=== PATIENT | female | born 1955 | race Caucasian/White ===

== ENCOUNTER 2018-12-05 17:49 | Inpatient (IN) | payer MEDICARE, MEDICAID ==
[2018-12-05 18:11] LABS: #Basophils 0.1 thou/uL (0.0-0.2); #Lymphocytes 1.3 thou/uL (1.20-3.40); #Monocytes 0.8 thou/uL (0.11-0.59); #Neutrophils 15.9 thou/uL (1.40-6.50); %Basophils 0.4 % (0.0-1.0); %Eosinophils 0.2 % (0.0-10.0); %Lymphocytes 6.9 % (21.0-51.0); %Monocytes 4.6 % (0.0-10.0); Hemoglobin 15.1 g/dL (12.0-16.0); Mean Corpuscular HGB CONC 33.3 g/dL (32.0-36.0); Mean Corpuscular Hemoglobin 31.1 pg (27.0-31.0); Mean Corpuscular Volume 93.3 fL (78.0-98.0); Mean Platelet Volume 6.4 fL (7.4-10.4); Platelet Count 353 thou/uL (130-400); RBC Distribution Width 12.7 % (11.5-14.5); Red Blood Cell (RBC) Count 4.85 mill/uL (4.20-5.40); White Blood Cell (WBC) Count 18.1 thou/uL (4.8-10.8)
[2018-12-05 18:14] LABS: Actual Bicarbonate (HCO3a) 21.2 mEq/L (22-28); Analyzer IN Cardio ER; CO2 Tension 32.3 mmHg (35.0-45.0); Calcium, Ionized 1.06 mmol/L (1.12-1.30); Carboxyhemoglobin (COHb) 2.8 gm% (0.0-3.0); Hemoglobin (Hb) 15.1 g/dL (12.0-16.0); O2 Tension (PaO2) 64.5 mmHg (> 80.0); Potassium - ABG Lab 3.92 mmol/L (3.70-5.30); pH, Arterial 7.44 (7.35-7.45)
[2018-12-05 18:19] LABS: Puncture Site RRA
[2018-12-05 18:20] LABS: ALV-art Gradient 109.025 (0-20)
[2018-12-05] MEDS ORDERED: Dexamethasone 10 MG/ML VIAL ONE (18:21)
--- NOTE | 2018-12-05 18:32 | RAD ---
CHEST ONE VIEW: 12/05/18 INDICATION: History of cough. COMPARISON: None. FINDINGS: The lungs are hyperinflated. There is patchy interstitial and air space opacity seen within the regio n of the lingula suspicious for pneumonia. Two view chest radiograph is recommended. There is a calci fied granuloma in the right upper lobe. There is mild cardiomegaly. No acute osseous abnormality is n oted. IMPRESSION: 1. Patchy opacity within the region of the lingula suspicious for pneumonia. Recommend two view chest radiograph. 2. COPD change. 3. Findings of prior granulomatous disease. POS: [facility]
[2018-12-05 18:33] LABS: ALT (SGPT) 9 U/L (8-55); AST (SGOT) 20 U/L (5-34); Albumin 3.7 g/dL (3.4-4.8); Alkaline Phosphatase 113 U/L (40-150); Anion Gap 13 mmol/L (10-20); BUN (Urea Nitrogen) Less than 4 mg/dL (9.8-20.1); Bilirubin, Total 0.7 mg/dL (0.2-1.2); CK (CPK) 72 U/L (29-168); Calc. Creatinine Clearance 0 mL/min (70-130); Calcium 8.4 mg/dL (7.8-10.44); Carbon Dioxide 23 mmol/L (23-31); Chloride 98 mmol/L (98-107); Estimated GFR-MDRD 85; Globulin 3.8 g/dL (2.4-3.5); Glucose 123 mg/dL (80-115); Lipase 11 U/L (8-78); Protein, Total 7.5 g/dL (6.0-8.3); Sodium 130 mmol/L (136-145)
[2018-12-05 19:12] LABS: Bacteria/HPF None Seen HPF (None Seen); Bilirubin Negative (Negative); Blood, Urine Trace (Negative); Clarity Clear (Clear); Glucose, Urine (Dipstick) Normal (Negative); Leukocyte Negative Leu/uL (Negative); Nitrite Negative (Negative); Protein, Urine (Dipstick) Negative (Neg-Trace); RBC/HPF 0-3 HPF (0-3); Squamous Epithelial 0-3 HPF (0-3); Urobilinogen Normal mg/dL (Less than 2); WBC/HPF 0-3 HPF (0-3)
[2018-12-05] MEDS ORDERED: Ondansetron PF 4 MG/2 ML Vial IVP PRN (21:33)
[2018-12-05] MEDS ORDERED: Ondansetron ODT 4 MG TAB SL PRN (21:33)
[2018-12-05] MEDS ORDERED: Sodium Chloride 0.9% 1,000 ML IV SCH (21:33)
[2018-12-05 22:01] VITALS: BMI 16.2
[2018-12-05] MEDS ORDERED: traMADol HCl 50 MG TAB PO PRN (22:38)
[2018-12-06] MEDS ORDERED: Acetaminophen 325 MG TAB PO PRN (00:43)
[2018-12-06] MEDS ORDERED: Senokot S 8.6-50 MG TAB PO PRN (00:43)
[2018-12-06] MEDS ORDERED: Bisacodyl 10 MG SUPP PR PRN (00:43)
[2018-12-06] MEDS ORDERED: Bacteriostatic Water 30 ML VIAL FS PRN (00:49)
[2018-12-06] MEDS ORDERED: traMADol HCl 50 MG TAB PO PRN (00:52)
[2018-12-06] MEDS: NS 0.9% w/ 20 MEQ KCL 1,000 ML/1,000 ML BAG IV SCH ×3 (01:19→17:23)
--- NOTE | 2018-12-06 02:31 | HP ---
PRIMARY CARE PHYSICIAN: Out of town. The patient is planning to see Dr. Linda Roland. CHIEF COMPLAINT: Shortness of breath with fever. HISTORY OF PRESENT ILLNESS: The patient is a 63-year-old female with myasthenia gravis, on mycophenolate; COPD/asthma and recurrent pneumonias, presented to the emergency room with above complaints. Please note that this is the first admission to this facility. Over the last 1-2 days, the patient developed gradual worsening shortness of breath along with chest tightness and intermittent wheezing. She also had sharp pains with deep breaths. She felt feverish, however, did not record a temperature. She also had cough, which was initially dry. However, since this afternoon, cough has become productive of thick whitish phlegm. She denies any sick contacts. She felt nauseous, however, denies any vomiting. No skin rash, diarrhea, altered mentation, or chest pain reported. In the emergency room, her vital signs showed temperature 99.1, respirations 20 , and pulse of 106 with a blood pressure of 156/83 with O2 saturation 98% on face mask. Her chest x-ray showed findings suspicious for pneumonia in the lingula. She received Levaquin along with Decadron and IV fluid in the emergency room. Was placed on NIPPV which was later discontinued. PAST MEDICAL HISTORY: 1. Myasthenia gravis, followed at [facility], on mycophenolate. 2. Matthews disease. She is currently not on any steroids. She used to be on prednisone in the past. 3. COPD/asthma. 4. Chronic respiratory failure, on p.r.n. home oxygen. 5. Depression. 6. History of Cryptosporidium. 7. Recurrent pneumonias. 8. Seasonal allergies. PAST SURGICAL HISTORY: 1. Appendectomy. 2. Hysterectomy. ALLERGIES: 1. THE PATIENT IS ALLERGIC TO PENICILLIN THAT CAUSES SEVERE HIVES AND RASH. 2. SULFA ALLERGY. CURRENT HOME MEDICATION: 1. Mycophenolate 1000 mg in the morning and 500 mg in the evening. 2. Flonase daily. 3. Symbicort 1 puff b.i.d. Please note that the patient is out of Symbicort. 4. Albuterol 2 puffs b.i.d. Please note that the patient is out of albuterol as well. SOCIAL HISTORY: The patient currently lives in [place]. Her daughter works at [employer] in [place]. She continues to smoke on and off. No drug use. Drinks alcohol socially. Full code. DPOA - Patient makes her own decisions with help of her family. FAMILY HISTORY: Negative for premature coronary artery disease. REVIEW OF SYSTEMS: All other review of systems was reviewed and were found negative. PHYSICAL EXAMINATION: VITAL SIGNS: As discussed above. GENERAL: 63-year-old female, in mild distress due to repeated coughing. HEENT: Head; atraumatic, normocephalic. Sclerae anicteric. Moist mucous membranes. No oral lesion appreciated on limited examination. I was unable to see the posterior pharynx. NECK: Supple. No JVD. No carotid bruit. LUNGS: Showed scattered rhonchi with rales on the left. No significant wheezing appreciated. Minimal accessory muscle use. HEART: S1, S2 present. Regular rate and rhythm. No rubs or gallops. ABDOMEN: Soft. Bowel sounds present. No rebound or guarding. EXTREMITIES: No edema or calf tenderness. NEUROLOGIC: Grossly nonfocal. Moves all 4 extremities. PSYCHIATRY: Alert, awake, oriented x3. SKIN: Warm and dry. LYMPH NODE: No palpable lymph nodes in the neck. PERIPHERAL VASCULAR: Radial pulses palpable bilaterally. MUSCULOSKELETAL: No joint swelling or tenderness. LABORATORY FINDINGS: WBC 18.1 with hemoglobin 15.1, hematocrit 45.3, platelet 353. ABG showed pH 7.44 with pCO2 of 32.3, PO2 of 64.5. Chemistry showed sodium 130, potassium 4, chloride 98, bicarb 23, BUN less than 4, creatinine 0.69. BNP was 194. Troponin was negative. Lactic acid was 1.1. Urinalysis was negative for wbc or bacteria. EKG by my review showed sinus tachycardia. Chest x-ray by my review as discussed above. IMPRESSION: 1. Acute hupoxic respiratory failure/Sepsis secondary to pneumonia, suspected pneumococcal. 2. Asthma/chronic obstructive pulmonary disease exacerbation. 3. Myasthenia gravis, on mycophenolate. 4. History of recurrent pneumonias. 5. History of Cryptosporidium, completed treatment. 6. Depression, mild, stable. 7. Seasonal allergies. 8. Chronic kidney disease, stage 2. 9. 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 10. History of chronic adrenal insufficiency. 11. Ongoing tobacco abuse. 12. Chronic respiratory failure, on p.r.n. home oxygen. PLAN: The patient will be monitored on the medical floor. We will continue Levaquin. We will consult Infectious Disease due to immunosuppression. She is allergic to penicillin. We will resume CellCept. Nebulizer treatment every 4 hours. IV Solu-Medrol 20 mg every 8 hourly. GI and DVT prophylaxis. PT/OT consultation. We will resume home health care at discharge. We will repeat chest x-ray 2-view in a.m. per Radiology recommendation. We will recheck labs in a.m. Add Ensure Enlive 3 times daily. Tobacco cessation was emphasized. Plan was discussed with the patient in detail. She stated understanding. Job ID: [id number] MTDD
[2018-12-06] MEDS: methylPREDNISolone Sod Succ 40 MG VIAL IVP SCH ×3 (05:36→22:10)
[2018-12-06] MEDS ORDERED: Dexamethasone 4 mg/ml Vial SLOW IVP SCH (06:00)
[2018-12-06] MEDS: Mometasone/Formoterol 120 PUFF INHALER INH SCH ×2 (06:35→19:08)
[2018-12-06 07:05] LABS: ALT (SGPT) Less than 7 U/L (8-55); AST (SGOT) 13 U/L (5-34); Albumin 3.1 g/dL (3.4-4.8); Alkaline Phosphatase 83 U/L (40-150); Anion Gap 9 mmol/L (10-20); BUN (Urea Nitrogen) 6 mg/dL (9.8-20.1); Bilirubin, Total 0.5 mg/dL (0.2-1.2); Calc. Creatinine Clearance 76 mL/min (70-130); Calcium 8.5 mg/dL (7.8-10.44); Carbon Dioxide 24 mmol/L (23-31); Chloride 102 mmol/L (98-107); Estimated GFR-MDRD Greater than 90; Globulin 3.2 g/dL (2.4-3.5); Glucose 141 mg/dL (80-115); Magnesium 1.7 mg/dL (1.6-2.6); Potassium 4.4 mmol/L (3.5-5.1); Protein, Total 6.3 g/dL (6.0-8.3); Sodium 131 mmol/L (136-145)
[2018-12-06 07:06] LABS: #Lymphocytes 0.5 thou/uL (1.20-3.40); #Monocytes 0.3 thou/uL (0.11-0.59); #Neutrophils 7.8 thou/uL (1.40-6.50); %Eosinophils 0.1 % (0.0-10.0); %Lymphocytes 5.8 % (21.0-51.0); %Monocytes 3.1 % (0.0-10.0); Hemoglobin 12.8 g/dL (12.0-16.0); Mean Corpuscular HGB CONC 32.6 g/dL (32.0-36.0); Mean Corpuscular Hemoglobin 30.3 pg (27.0-31.0); Mean Platelet Volume 6.9 fL (7.4-10.4); Platelet Count 292 thou/uL (130-400); RBC Distribution Width 12.7 % (11.5-14.5); Red Blood Cell (RBC) Count 4.21 mill/uL (4.20-5.40); White Blood Cell (WBC) Count 8.5 thou/uL (4.8-10.8)
[2018-12-06] MEDS: guaiFENesin ER 600 MG TAB PO SCH ×2 (08:28→19:57)
[2018-12-06] MEDS: Famotidine 20 MG TAB PO SCH ×2 (08:28→19:56)
[2018-12-06] MEDS: Heparin 5,000 UNITS/ML VIAL SC SCH ×2 (08:29→19:58)
[2018-12-06] MEDS: Mycophenolate 250 MG CAP PO SCH ×2 (08:38→17:28)
[2018-12-06] MEDS ORDERED: Fluticasone Propionate Nasal Spray 16 gm Bottle NASAL SCH (09:00)
[2018-12-06] MEDS: traMADol HCl 50 MG TAB PO PRN (19:57)
[2018-12-07] MEDS: NS 0.9% w/ 20 MEQ KCL 1,000 ML/1,000 ML BAG IV SCH ×3 (01:44→17:30)
[2018-12-07] MEDS: methylPREDNISolone Sod Succ 40 MG VIAL IVP SCH ×3 (05:31→21:01)
[2018-12-07] MEDS: Mometasone/Formoterol 120 PUFF INHALER INH SCH ×2 (06:18→18:15)
[2018-12-07] MEDS: Famotidine 20 MG TAB PO SCH ×2 (08:09→20:19)
[2018-12-07] MEDS: Heparin 5,000 UNITS/ML VIAL SC SCH ×2 (08:10→20:20)
[2018-12-07] MEDS: guaiFENesin ER 600 MG TAB PO SCH ×2 (08:10→20:19)
[2018-12-07] MEDS: Fluticasone Propionate Nasal Spray 16 gm Bottle NASAL PRN ×2 (08:11→20:20)
[2018-12-07] MEDS: Mycophenolate 250 MG CAP PO SCH ×2 (09:50→17:31)
--- NOTE | 2018-12-07 11:13 | RAD ---
PA AND LATERAL VIEWS CHEST: Date: 12/07/18 HISTORY: Pneumonia follow-up. FINDINGS/IMPRESSION: Comparison made with exam of 12/05/18. There are changes of COPD. The heart size is stable. The lungs are expanded without lobar consolidati on, pneumothoraces, or pleural effusions. The calcified granuloma in the right upper lobe is again se en. POS: [facility]
--- NOTE | 2018-12-07 12:25 | PDOC.HOSPP ---
- Subjective Subjective: Pt seen for followup re; acute hypoxic respiratory failure. feels better. - Objective Vital Signs & Weight: Vital Signs (12 hours) Temp Pulse Resp BP Pulse Ox 12/07/18 10:01 90 16 93 L 12/07/18 08:00 98.2 F 90 18 144/74 H 93 L 12/07/18 06:15 91 18 97 12/07/18 03:57 98.0 F 106 H 18 141/72 H 94 L 12/07/18 02:47 98 18 93 L Weight Admit Weight 110 lb Weight 110 lb I&O: 12/06/18 12/07/18 12/08/18 06:59 06:59 06:59 Intake Total 2142 5128 Balance 2142 5128 Result Diagrams: 12/06/18 06:25 12/06/18 06:25 ROS - Review of Systems All systems: All other ROS were reviewed and found negative. Respiratory: reports: cough, dry, SOB with excertion. denies: shortness of breath, hemoptysis, pleuritic pain, sputum, wheezing Cardiovascular: denies: chest pain, palpitations, orthopnea, paroxysmal noc. dyspnea, edema, light headedness - Medication Medications: Active Medications Generic Name Dose Route Start Last Admin Trade Name Freq PRN Reason Stop Dose Admin Albuterol/Ipratropium 3 ml 12/06/18 02:30 12/07/18 10:01 Duoneb NEB 3 ml [id number] TIFF Administration Famotidine 20 mg 12/06/18 09:00 12/07/18 08:09 Pepcid PO 20 mg BID TIFF Administration Fluticasone Propionate 0 gm 12/06/18 23:03 12/07/18 08:11 Flonase Nasal [place] NASAL 1 puff BIDPRN PRN Administration Nasal Congestion Guaifenesin 600 mg 12/06/18 09:00 12/07/18 08:10 Mucinex PO 600 mg Q12HR TIFF Administration Heparin Sodium (Porcine) 5,000 units 12/06/18 09:00 12/07/18 08:10 Heparin SC 5,000 units BID TIFF Administration Potassium Chloride/Sodium Chloride 1,000 ml in 1,000 mls @ 125 mls/hr 00:45 12/07/18 08:15 Ns 0.9% W/ 20 Meq Kcl IV 1,000 mls .Q8H TIFF Administration Levofloxacin 750 mg/ Device 150 mls @ 100 mls/hr 12/06/18 18:00 12/06/18 17: 23 IVPB 150 mls 1800 TIFF Administration Methylprednisolone Sodium Succinate 20 mg 12/06/18 06:00 12/07/18 05:31 Solu-Medrol IVP 20 mg Q8HR TIFF Administration Mometasone Furoate/Formoterol Fumar 1 puff 12/06/18 06:30 12/07/18 06:18 Dulera 200 Mcg/5 Mcg Inhaler INH 1 puff BID-RT TIFF Administration Mycophenolate Mofetil 500 mg 12/06/18 17:00 12/06/18 17:28 Cellcept PO 500 mg QPM-WM TIFF Administration Mycophenolate Mofetil 1,000 mg 12/06/18 08:00 12/07/18 09:50 Cellcept PO 1,000 mg QAM-WM TIFF Administration Sodium Chloride 10 ml 12/06/18 09:00 12/07/18 08:10 Flush - Normal Saline IVF 10 ml Q12HR TIFF Administration Tramadol HCl 50 mg 12/06/18 18:19 12/06/18 19:57 Ultram PO 50 mg Q6H PRN Administration Pain - Exam NAD Eye: anicteric sclera Neck: supple Heart: RRR Respiratory: CTAB Gastrointestinal: soft Psychiatric: normal affect Hosp A/P (1) Acute respiratory failure with hypoxia Code(s): J96.01 - ACUTE RESPIRATORY FAILURE WITH HYPOXIA Status: Acute (2) COPD exacerbation Code(s): J44.1 - CHRONIC OBSTRUCTIVE PULMONARY DISEASE W (ACUTE) EXACERBATION Status: Acute (3) Myasthenia gravis Code(s): G70.00 - MYASTHENIA GRAVIS WITHOUT (ACUTE) EXACERBATION Status: Chronic (4) Protein-calorie malnutrition, severe Code(s): E43 - UNSPECIFIED SEVERE PROTEIN-CALORIE MALNUTRITION Status: Chronic - Plan continue antibiotics, PT/OT, out of bed/ambulate Pt improving clinically. Continue antibiotics, oxygen, steroids and bronchodilators. Continue Cellcept. Appreciate dietitian input.
[2018-12-07] MEDS: traMADol HCl 50 MG TAB PO PRN (20:19)
--- NOTE | 2018-12-08 00:05 | CON ---
DATE OF CONSULTATION: 12/07/2018 REASON FOR CONSULTATION: Pneumonia. HISTORY OF PRESENT ILLNESS: 63-year-old who has a history of chronic smoking and COPD and was diagnosed with myasthenia gravis in 2002 when she developed diffuse weakness, diplopia, inability or difficulty with swallowing which lasted for many months, eventually was admitted and treated at [facility] in [place], followed there with mycophenolate; and there is a history of Turner disease, probably this actually is iatrogenic from the previous corticosteroid intake, not true autoimmune Turner. She has oxygen at home because of her advanced lung disease, has not been on steroids lately. The patient has noticed marked improvement in her myasthenia gravis over the past many years and this time she was admitted with fairly sudden onset of dyspnea, chest tightness, wheezing, little bit of cough productive of white mucus. The chest x-ray had a lingular infiltrate and she was started on antimicrobial therapy and inhalers, methylprednisolone. Currently, she is sitting up in bed with oxygen. She is still mildly tachypneic, has a little bit of dyspnea, but not as much as before. No headaches, visual symptoms, sore throat, odynophagia, or dysphagia. No chest pain. No back pain. No abdominal pain or diarrhea. No genitourinary symptoms. No joint symptoms. No neurological symptoms. PAST MEDICAL HISTORY: COPD, chronic smoking, O2 dependent; myasthenia gravis, diagnosed elsewhere, previously on immunosuppressive medications including corticosteroids, but not recently; previous pneumonias. PAST SURGICAL HISTORY: Appendectomy and hysterectomy. ALLERGIES: PENICILLIN WITH HIVES. HOME MEDICATIONS: 1. Mycophenolate. 2. Flonase. 3. Symbicort. 4. Albuterol. SOCIAL HISTORY: Lives in [place] by herself. Continues to smoke. Drinks alcoholic beverages but not daily. FAMILY HISTORY: Noncontributory. CURRENT MEDICATIONS: 1. Tylenol. 2. DuoNeb. 3. Dulcolax. 4. Pepcid. 5. Flonase. 6. Mucinex. 7. Levofloxacin. 8. Methylprednisolone 20 mg q.8. 9. Formoterol. 10. Mometasone. 11. Mycophenolate. PHYSICAL EXAMINATION: VITAL SIGNS: T-max 98, blood pressure 140/70, pulse 90, respirations 18, O2 saturation 94%, 2 L nasal cannula. GENERAL: Appears in no distress. Awake, alert, oriented. Speech is normal. HEENT: Ocular movements are conjugate. Sclerae white. Conjunctivae normal. Oral cavity was not remarkable. NECK: Supple. LUNGS: With diminished breath sounds throughout the right and left lung pillai and expiratory wheezing, particularly on the left side. No expiratory crackles noted. HEART: S1, S2. Regular rate. No S3 or S4. ABDOMEN: Soft, not distended or tender. No ascites. No bladder distention. EXTREMITIES: Moves extremities equally. Strength is preserved. Pulses 1+ in dorsalis pedis. Plantar responses are flexor. NEUROLOGIC: Cranial nerves are normal. Cognitive function appears to be normal. Good recollection. LABORATORY DATA: White cell count is down from 18 to 8.5, hemoglobin 12.8, platelets 292. PH of 7.4, pCO2 of 32, PO2 of 64. Sodium 131, creatinine 0.58. Liver enzymes normal. Albumin 3.1. Urinalysis was normal. Microbiology with 1 /2 sets of blood cultures with gram-positive cocci, most likely contaminant sample , but we will wait for the final identification. The sputum was not technically interpretable because of contamination with upper airway material. Chest x-ray with a lingular infiltrate. Repeat x-ray with no evidence of consolidation. ASSESSMENT: 1. Chronic obstructive pulmonary disease with chronic smoking, still actively smoking. 2. History of myasthenia gravis, on mycophenolate. 3. Worsening respiratory symptoms with wheezing and some mild infiltrate. DISCUSSION: Differential diagnosis includes bronchitis with COPD exacerbation and possible lower respiratory tract infection either viral or bacterial. Chronic atypical mycobacterial colonization is another concern. Pneumocystitis is less of a concern at this time. We will submit respiratory virus PCR, AFB cultures, and will submit C-reactive protein. Recently, studies have shown a C-reactive protein helps with the differentiation between bacterial and nonbacterial forms of COPD with decompensation. If normal, then discontinue antimicrobial therapy. Job ID: [id number] [facility]
[2018-12-08] MEDS: methylPREDNISolone Sod Succ 40 MG VIAL IVP SCH ×3 (05:01→21:30)
[2018-12-08] MEDS: NS 0.9% w/ 20 MEQ KCL 1,000 ML/1,000 ML BAG IV SCH ×5 (05:01→23:20)
[2018-12-08] MEDS: Mometasone/Formoterol 120 PUFF INHALER INH SCH ×2 (07:17→19:26)
[2018-12-08] MEDS: Heparin 5,000 UNITS/ML VIAL SC SCH ×2 (08:23→21:10)
[2018-12-08] MEDS: Mycophenolate 250 MG CAP PO SCH ×2 (08:24→17:47)
[2018-12-08] MEDS: guaiFENesin ER 600 MG TAB PO SCH ×2 (08:25→21:09)
[2018-12-08] MEDS: Famotidine 20 MG TAB PO SCH ×2 (08:25→21:09)
[2018-12-08 16:48] LABS: Anion Gap 11 mmol/L (10-20); BUN (Urea Nitrogen) 6 mg/dL (9.8-20.1); Calc. Creatinine Clearance 70 mL/min (70-130); Calcium 8.6 mg/dL (7.8-10.44); Carbon Dioxide 24 mmol/L (23-31); Chloride 98 mmol/L (98-107); Estimated GFR-MDRD Greater than 90; Glucose 97 mg/dL (80-115); Potassium 4.2 mmol/L (3.5-5.1); Sodium 129 mmol/L (136-145)
--- NOTE | 2018-12-08 17:35 | PDOC.HOSPP ---
- Subjective Subjective: Pt seen for followup re: COPD exacerbation. Feels better. - Objective Vital Signs & Weight: Vital Signs (12 hours) Temp Pulse Resp BP Pulse Ox Pulse Ox Pulse Ox 12/08/18 15:21 98.1 F 106 H 16 144/72 H 90 L 12/08/18 14:19 82 16 92 L 12/08/18 11:45 97.7 F 78 16 136/84 91 L 12/08/18 11:14 85 L 90 L 12/08/18 10:34 98 16 92 L 12/08/18 08:00 97 12/08/18 07:20 97 12/08/18 07:19 82 16 97 12/08/18 07:17 82 16 97 Weight Admit Weight 110 lb Weight 110 lb I&O: 12/07/18 12/08/18 12/09/18 06:59 06:59 06:59 Intake Total 5128 5123 2550 Balance 5128 5123 2550 Result Diagrams: 12/06/18 06:25 12/08/18 16:21 Additional Labs: Labs and MARs reviewed by mt ROS - Review of Systems All systems: All other ROS were reviewed and found negative. Constitutional: denies: fever, chills, sweats, weakness, malaise Respiratory: reports: cough, dry, SOB with excertion. denies: shortness of breath, hemoptysis, pleuritic pain, sputum, wheezing Cardiovascular: denies: chest pain, palpitations, orthopnea, paroxysmal noc. dyspnea, edema, light headedness - Medication Medications: Active Medications Generic Name Dose Route Start Last Admin Trade Name Freq PRN Reason Stop Dose Admin Albuterol/Ipratropium 3 ml 12/06/18 02:30 12/08/18 14:19 Duoneb NEB 3 ml [id number] TIFF Administration Famotidine 20 mg 12/06/18 09:00 12/08/18 08:25 Pepcid PO 20 mg BID TIFF Administration Fluticasone Propionate 0 gm 12/06/18 23:03 12/07/18 20:20 Flonase Nasal [place] NASAL 1 puff BIDPRN PRN Administration Nasal Congestion Guaifenesin 600 mg 12/06/18 09:00 12/08/18 08:25 Mucinex PO 600 mg Q12HR TIFF Administration Heparin Sodium (Porcine) 5,000 units 12/06/18 09:00 12/08/18 08:23 Heparin SC 5,000 units BID TIFF Administration Potassium Chloride/Sodium Chloride 1,000 ml in 1,000 mls @ 125 mls/hr 00:45 12/08/18 12:26 Ns 0.9% W/ 20 Meq Kcl IV 1,000 mls .Q8H TIFF Administration Levofloxacin 750 mg/ Device 150 mls @ 100 mls/hr 12/06/18 18:00 12/07/18 17: 30 IVPB 150 mls 1800 TIFF Administration Methylprednisolone Sodium Succinate 20 mg 12/06/18 06:00 12/08/18 14:27 Solu-Medrol IVP 20 mg Q8HR TIFF Administration Mometasone Furoate/Formoterol Fumar 1 puff 12/06/18 06:30 12/08/18 07:17 Dulera 200 Mcg/5 Mcg Inhaler INH 1 puff BID-RT TIFF Administration Mycophenolate Mofetil 500 mg 12/06/18 17:00 12/07/18 17:31 Cellcept PO 500 mg QPM-WM TIFF Administration Mycophenolate Mofetil 1,000 mg 12/06/18 08:00 12/08/18 08:24 Cellcept PO 1,000 mg QAM-WM TIFF Administration Sodium Chloride 10 ml 12/06/18 09:00 12/08/18 08:25 Flush - Normal Saline IVF Not Given Q12HR TIFF Tramadol HCl 50 mg 12/06/18 18:19 12/07/18 20:19 Ultram PO 50 mg Q6H PRN Administration Pain - Exam NAD Eye: anicteric sclera Neck: supple Heart: RRR Respiratory: CTAB Neurological: CN's grossly intact Psychiatric: normal affect Hosp A/P (1) Acute respiratory failure with hypoxia Code(s): J96.01 - ACUTE RESPIRATORY FAILURE WITH HYPOXIA Status: Acute (2) COPD exacerbation Code(s): J44.1 - CHRONIC OBSTRUCTIVE PULMONARY DISEASE W (ACUTE) EXACERBATION Status: Acute (3) Myasthenia gravis Code(s): G70.00 - MYASTHENIA GRAVIS WITHOUT (ACUTE) EXACERBATION Status: Chronic (4) Protein-calorie malnutrition, severe Code(s): E43 - UNSPECIFIED SEVERE PROTEIN-CALORIE MALNUTRITION Status: Chronic - Plan continue antibiotics, respiratory therapy, out of bed/ambulate, DVT proph w/ lovenox Pt clinically improving but continues to be hypoxic. Continue oxygen, steroids, bronchodilators and antibiotics. Continue cellcept.
[2018-12-08] MEDS: traMADol HCl 50 MG TAB PO PRN (21:44)
[2018-12-09] MEDS: NS 0.9% w/ 20 MEQ KCL 1,000 ML/1,000 ML BAG IV SCH ×2 (00:45→06:11)
[2018-12-09] MEDS: methylPREDNISolone Sod Succ 40 MG VIAL IVP SCH ×2 (06:12→15:24)
[2018-12-09 06:19] LABS: #Lymphocytes 0.6 thou/uL (1.20-3.40); #Monocytes 0.4 thou/uL (0.11-0.59); #Neutrophils 5.8 thou/uL (1.40-6.50); %Basophils 0.2 % (0.0-1.0); %Eosinophils 0.1 % (0.0-10.0); %Lymphocytes 9.2 % (21.0-51.0); %Monocytes 5.2 % (0.0-10.0); %Neutrophils 85.3 % (42.0-75.0); Hemoglobin 13.2 g/dL (12.0-16.0); Mean Corpuscular HGB CONC 32.7 g/dL (32.0-36.0); Mean Corpuscular Hemoglobin 31.3 pg (27.0-31.0); Mean Corpuscular Volume 95.7 fL (78.0-98.0); Mean Platelet Volume 6.9 fL (7.4-10.4); Platelet Count 294 thou/uL (130-400); RBC Distribution Width 12.6 % (11.5-14.5); White Blood Cell (WBC) Count 6.8 thou/uL (4.8-10.8)
[2018-12-09] MEDS: Mometasone/Formoterol 120 PUFF INHALER INH SCH (07:00)
[2018-12-09] MEDS: Heparin 5,000 UNITS/ML VIAL SC SCH (08:02)
[2018-12-09] MEDS: guaiFENesin ER 600 MG TAB PO SCH (08:02)
[2018-12-09] MEDS: Famotidine 20 MG TAB PO SCH (08:02)
[2018-12-09] MEDS: Mycophenolate 250 MG CAP PO SCH (08:02)
--- NOTE | 2018-12-09 11:20 | PQF ---
CLINICAL DOCUMENTATION IMPROVEMENT CLARIFICATION FORM: ICD-10 Updated PLEASE DO AN ADDENDUM TO THE PROGRESS NOTE WITH ANY DOCUMENTATION UPDATES OR ADDITIONS AND CARRY THROUGH TO DC SUMMARY. THANK YOU. DATE: 12/09/2018 ATTN: Dr. Stratton Please exercise your independent, professional judgment in responding to the clarification form. Clinical indicators are provided on the bottom of this form for your review Please check appropriate box(s) to clarify if the following diagnosis has been ruled in or ruled out: Sepsis secondary to pneumonia [ ] Ruled in diagnosis [ ] Continue to treat [ ] Resolved [ ] Ruled out diagnosis [ ] Cannot rule out diagnosis [ ] Other diagnosis [ ] Unable to determine In addition, please specify: Present on Admission (POA): [ ] Yes [ ] No [ ] Unable to determine For continuity of documentation, please document condition throughout progress notes and discharge summary. Thank You. CLINICAL INDICATORS - SIGNS / SYMPTOMS / LABS H&P 12/05: In ER, her VS showed temp. 99.1, resp. 20, pulse of 106 with BP 156/83 O2 sat 98% on face mask. WBC 18.1 Acute hypoxic respiratory failure/Sepsis secondary to pneumonia, suspected pneumococcal. RISKS: H&P: PMH Myasthenia gravis, Jerome disease. COPD/asthma. Chronic resp. failure. Recurrent pneumonias. TREATMENT: ID Consult Order 12/06: Levaquin 750 mg IV Thank you, Fidelina (This form is maintained as a part of the permanent medical record) 2014 [employer]. All Rights Reserved Fidelina Kirk RN, [email or web address] Office: [phone] [facility]
--- NOTE | 2018-12-09 15:49 | DIS ---
DATE OF ADMISSION: 12/05/2018 DATE OF DISCHARGE: 12/09/2018 PRIMARY CARE PROVIDER: Dr. Linda Roland. DISCHARGE DIAGNOSES: 1. Sepsis, resolved, present on admission. 2. Pneumonia. 3. Chronic obstructive pulmonary disease exacerbation. 4. Acute hypoxic respiratory failure. 5. Severe protein-calorie malnutrition. CONDITION OF PATIENT ON THE DAY OF DISCHARGE: Stable. I assessed Ms. Carnes on the day of discharge. She denies any chest pain or shortness of breath. Vital signs are stable. She is saturating well on room air. S1 and S2 are heard, regular. Lungs are clear to auscultation bilaterally. CONSULTATIONS DURING THIS HOSPITALIZATION: Infectious Diseases Service, Dr. Amos. DISCHARGE MEDICATIONS: 1. Flonase 1 spray daily. 2. CellCept 1000 mg in the morning and 500 mg in the evening. 3. DuoNeb 3 mL 4 times a day as needed. 4. Levofloxacin 750 mg daily for 7 days. 5. Dulera 200/5 mcg inhaler one puff 2 times a day. 6. Prednisone taper. HOSPITAL COURSE: Ms. Carnes is a pleasant 63-year-old lady, who was admitted to [facility] on December 06, 2018 for sepsis, COPD exacerbation, and pneumonia. At the time of admission, she had patchy opacity within the region of the lingula that was suspicious for pneumonia. She was started on antibiotics, oxygen, steroids, and bronchodilators. She was seen by Infectious Diseases Service because of her immunocompromised status. Respiratory virus panel was negative. 1/2 blood cultures grew Micrococcus luteus, most likely contaminant. At the time of this dictation, acid-fast bacillus, smear concentration, and culture are pending. She is advised to follow up with her primary care provider for the results of the same. She is also advised to follow up with Infectious Diseases Service in 2 to 3 weeks. She improved clinically and is being discharged home in a stable condition. On the day of discharge, she has white count of 6800, hemoglobin 13.2, and platelet count 294,000. Sodium 129, potassium 4.2, and creatinine 0.63. During this hospitalization, she had elevated BNP of 193.8 and elevated C-reactive protein of 1.94. DISCHARGE DESTINATION: Home. TIME SPENT: Total amount of time spent coordinating this discharge: 32 minutes. Many thanks for allowing me to participate in your patient's care. Please feel free to contact me with any questions or concerns. Job ID: [id number]
[2018-12-09 20:46] VITALS: BP 158/90; TEMP 97.2
== END 2018-12-09 15:24 | disposition home or self-care (01) | DRG 871 ==
LOC: ERS 17:49 → T4-B 20:49
PROVIDERS: ADMIT Internal Medicine; ATTEND Internal Medicine
DX: A41.9 Sepsis, unspecified organism (principal); J96.21 Acute and chronic respiratory failure with hypoxia; E43 Unspecified severe protein-calorie malnutrition; J18.9 Pneumonia, unspecified organism; J44.1 Chronic obstructive pulmonary disease with (acute) exacerbation; E87.1 Hypo-osmolality and hyponatremia; J44.0 Chronic obstructive pulmonary disease with (acute) lower respiratory infection; Z68.1 Body mass index [BMI] 19.9 or less, adult; G70.00 Myasthenia gravis without (acute) exacerbation; F32.9 Major depressive disorder, single episode, unspecified; J30.2 Other seasonal allergic rhinitis; N18.2 Chronic kidney disease, stage 2 (mild); Z99.81 Dependence on supplemental oxygen; Z88.0 Allergy status to penicillin; Z88.2 Allergy status to sulfonamides
CPT/HCPCS: 36415; 71045; 71046; 80048; 80053; 81003; 81015; 82550; 82805; 83605; 83690; 83735; 83880; 84484; 85025; 86140; 87040; 87070; 87077; 87116; 87149; 87205; 87206; 87633; 93005; 94640; 94660; 96365; 96375; J1100; J1644; J1956; J2920; J3480; J7517; J7620

== ENCOUNTER 2019-04-27 10:26 | Inpatient (IN) | payer MEDICARE, MEDICAID ==
--- NOTE | 2019-04-27 11:21 | RAD ---
EXAM: CHEST ONE VIEW HISTORY: Cough and weakness. Difficulty breathing which started this morning. COMPARISON: 12/05/2018 FINDINGS: Cardiac silhouette is magnified by projection. Pulmonary vasculature is within normal limits. There h as been interval development of increased interstitial densities at the right lung base worrisome for developing pneumonia. Nodular density overlying left lung base likely represents nipple shadow. L eft lung is otherwise clear. There is a stable nodular density overlying the right upper lung zone likely due to calcified granuloma. No other interval change. IMPRESSION: Mild increased interstitial densities at the right lung base compared to prior study worrisome for de veloping pneumonia.
[2019-04-27 11:41] LABS: #Lymphocytes 0.9 thou/uL (1.20-3.40); #Monocytes 0.5 thou/uL (0.11-0.59); #Neutrophils 2.2 thou/uL (1.40-6.50); %Basophils 0.9 % (0.0-1.0); %Eosinophils 0.2 % (0.0-10.0); %Lymphocytes 25.3 % (21.0-51.0); %Monocytes 13.6 % (0.0-10.0); Hemoglobin 16.6 g/dL (12.0-16.0); Mean Corpuscular HGB CONC 32.9 g/dL (32.0-36.0); Mean Corpuscular Hemoglobin 29.4 pg (27.0-31.0); Mean Corpuscular Volume 89.5 fL (78.0-98.0); Mean Platelet Volume 7.3 fL (7.4-10.4); Platelet Count 131 thou/uL (130-400); RBC Distribution Width 12.7 % (11.5-14.5); Red Blood Cell (RBC) Count 5.64 mill/uL (4.20-5.40); White Blood Cell (WBC) Count 3.7 thou/uL (4.8-10.8)
[2019-04-27] MEDS ORDERED: cefTRIAXone\\ROCEPHIN 2 GM VIAL ONE (11:50)
[2019-04-27 12:08] LABS: ALT (SGPT) 24 U/L (8-55); AST (SGOT) 76 U/L (5-34); Acetaminophen Less than 6.0 mcg/mL (10.0-30.0); Albumin 3.7 g/dL (3.4-4.8); Alcohol Less than 10 mg/dL (Less than 10); Alkaline Phosphatase 92 U/L (40-110); Anion Gap 16 mmol/L (10-20); BUN (Urea Nitrogen) 5 mg/dL (9.8-20.1); Bilirubin, Total 0.5 mg/dL (0.2-1.2); Calc. Creatinine Clearance 0 mL/min (70-130); Calcium 8.1 mg/dL (7.8-10.44); Carbon Dioxide 27 mmol/L (23-31); Chloride 85 mmol/L (98-107); Estimated GFR-MDRD Greater than 90; Globulin 3.3 g/dL (2.4-3.5); Glucose 99 mg/dL (80-115); Potassium 3.5 mmol/L (3.5-5.1); Salicylate Less than 8.0 mg/dL (15.0-30.0); Sodium 124 mmol/L (136-145)
[2019-04-27] MEDS ORDERED: Azithromycin 500 MG VIAL ONE (12:55)
--- NOTE | 2019-04-27 13:54 | HP ---
PRIMARY CARE PROVIDER: Referred to the [facility] by [facility] for pneumonia. HISTORY OF PRESENT ILLNESS: She has been progressively weak, anorectic with no energy. For several days, she has had a cough which is productive, shortness of breath with exertion. She has felt cold, but she has had no documented fever or chills. She relates she has had pneumonia in the past. PAST MEDICAL HISTORY: Pertinent for myasthenia gravis, on mycophenolate; history of Trent[place]'s disease, not currently on steroids; COPD; asthma; chronic respiratory failure, on p.r.n. home O2; depression; tobacco abuse. PAST SURGICAL HISTORY: Appendectomy, hysterectomy. ALLERGIES: PENICILLIN, SULFA. CURRENT MEDICATIONS: Listed only is Symbicort. This will be cleared up. She has been on mycophenolate 1000 mg in the morning and 500 in the evening. We will confirm. FAMILY HISTORY: Negative for premature coronary artery disease, hypertension, myasthenia. SOCIAL HISTORY: Lives in [place]. Quit smoking a month ago. Very occasional alcohol. Full code status. Daughter, Laurie Martin is her next of kin. REVIEW OF SYSTEMS: GENERAL: No dizziness or fainting. EYES: No double vision or blurred vision. EAR, NOSE, AND THROAT: Throat dry, otherwise no ear pain or drainage. No nasal bleeding. CARDIAC: No chest pain, orthopnea, or paroxysmal nocturnal dyspnea. RESPIRATIONS: See present illness. GASTROINTESTINAL: Nausea, occasional postprandial emesis and retching. Abdominal soreness due to coughing. No diarrhea. GENITOURINARY: Decreased urine output, which she relates to decreased intake. No blood in her urine. MUSCULOSKELETAL: No pain or swelling in her arms or legs. NEUROLOGICAL: History of myasthenia gravis. PSYCHIATRIC: History of depression, on no medicines. SKIN: Easy bruising. No rash. HEME/LYMPH: No tender or swollen lymph nodes in axilla, inguinal, or cervical area. PHYSICAL EXAMINATION: VITAL SIGNS: Her O2 saturation was 88% on room air, 92% on 2 L of O2, pulse 80, respirations 20, temperature 97.8, blood pressure 106/62 to 158/77. GENERAL: Alert and oriented, in no distress. HEAD, EYES, EARS, NOSE, AND THROAT: Pupils are equal, round, and reactive to light. Extraocular movements are intact. Sclerae are white. Tympanic membranes are clear. Nose is clear. Oral mucous membranes are dry and red. NECK: Supple without jugular venous distention, adenopathy, thyromegaly. CHEST: Had vesicular breath sounds hyperresonant, consistent with COPD. No focal findings were appreciated. HEART: Regular rate and rhythm. First and second second heart sounds clear. No murmurs or gallops. ABDOMEN: Soft. Bowel sounds are normal. There is no hepatosplenomegaly. No mass. No rebound. EXTREMITIES: Reveal no cyanosis, clubbing, or edema. PULSES: Carotid and radial femoral pulses intact and full. Pedal pulses diminished. SKIN: Warm and dry with ecchymoses minor on her arms consistent with actinic thinning and fragility. HEME/LYMPH: No tender or swollen lymph nodes in axilla, inguinal, cervical area. NEUROLOGICAL: Cranial nerves 2 through 12 are intact. Deep tendon reflexes symmetric. Moves all extremities. DIAGNOSTIC DATA: Chest x-ray; increased haziness in the area of the right middle lobe compared to previous reviewed by myself. EKG; none available. We will obtain. LABORATORY DATA: Chemistries; sodium 124, potassium 3.5, chloride 85, BUN 5, creatinine 0.6. White cell count is diminished at 3.7, hemoglobin 16.6, platelet count of 131,000. ADMITTING DIAGNOSES: 1. Acute respiratory failure. 2. Pneumonia, right middle lobe. 3. Myasthenia gravis. 4. Adrenal insufficiency. PLAN: Blood cultures have been drawn. Antibiotics will be started with Levaquin and Zithromax. Dulera, nebs. O2 will be continued. Serum cortisol will be obtained. She will be started on stress levels of steroids. Job ID: [id number]
[2019-04-27 15:10] VITALS: BMI 16.9
[2019-04-27] MEDS: Hydrocortisone Sod Succ/PF 100 mg/2 ml Vial IVP SCH (16:41)
--- NOTE | 2019-04-27 18:05 | PDOC.EVN ---
Event Note - Event Note Event Note: off cellcept for myastenia graviss, no neurological decompensation
[2019-04-27] MEDS: Sodium Chloride 0.9% 1,000 ML IV SCH ×2 (18:39→23:15)
[2019-04-27] MEDS: Mometasone/Formoterol 120 PUFF INHALER INH SCH (18:40)
[2019-04-28] MEDS: Hydrocortisone Sod Succ/PF 100 mg/2 ml Vial IVP SCH ×2 (02:22→13:08)
[2019-04-28] MEDS: Sodium Chloride 0.9% 1,000 ML IV SCH ×2 (02:23→10:52)
[2019-04-28] MEDS: Acetaminophen 325 MG TAB PO PRN (04:13)
[2019-04-28 05:53] LABS: Anion Gap 8 mmol/L (10-20); BUN (Urea Nitrogen) Less than 4 mg/dL (9.8-20.1); Calc. Creatinine Clearance 89 mL/min (70-130); Calcium 7.3 mg/dL (7.8-10.44); Carbon Dioxide 28 mmol/L (23-31); Chloride 93 mmol/L (98-107); Estimated GFR-MDRD Greater than 90; Glucose 112 mg/dL (80-115); Sodium 126 mmol/L (136-145)
[2019-04-28 05:56] LABS: Band 1 % (5-11); Hemoglobin 13.5 g/dL (12.0-16.0); Lymphocytes 23 % (21-51); MDiff Complete? YES; Mean Corpuscular HGB CONC 33.2 g/dL (32.0-36.0); Mean Corpuscular Hemoglobin 29.7 pg (27.0-31.0); Mean Corpuscular Volume 89.4 fL (78.0-98.0); Mean Platelet Volume 7.5 fL (7.4-10.4); Monocytes 6 % (0-10); Neutrophil 70 % (42-75); Platelet Count 125 thou/uL (130-400); Platelet Morphology Comment Appears Adequate; RBC Distribution Width 12.3 % (11.5-14.5); Red Blood Cell (RBC) Count 4.55 mill/uL (4.20-5.40); White Blood Cell (WBC) Count 3.5 thou/uL (4.8-10.8)
[2019-04-28 05:57] LABS: Potassium 2.9 mmol/L (3.5-5.1)
[2019-04-28] MEDS ORDERED: Potassium Chloride 20 MEQ TAB PO SCH (06:45)
[2019-04-28] MEDS: Mometasone/Formoterol 120 PUFF INHALER INH SCH ×2 (07:27→20:20)
[2019-04-28] MEDS: Enoxaparin Sodium 40 MG/0.4 ML SYRINGE SC SCH (08:50)
[2019-04-28 10:33] LABS: Anion Gap 10 mmol/L (10-20); BUN (Urea Nitrogen) Less than 4 mg/dL (9.8-20.1); Calc. Creatinine Clearance 81 mL/min (70-130); Calcium 7.7 mg/dL (7.8-10.44); Carbon Dioxide 22 mmol/L (23-31); Chloride 97 mmol/L (98-107); Estimated GFR-MDRD Greater than 90; Glucose 137 mg/dL (80-115); Potassium 3.4 mmol/L (3.5-5.1); Sodium 126 mmol/L (136-145)
--- NOTE | 2019-04-28 11:45 | PDOC.HOSPP ---
- Subjective Encounter Date: 04/28/19 Encounter Time: 11:43 Subjective: requests swallow eval - Objective Vital Signs & Weight: Vital Signs (12 hours) Temp Pulse Resp BP Pulse Ox 04/28/19 11:29 97.4 F L 74 15 122/77 92 L 04/28/19 07:59 92 L 04/28/19 07:57 97.3 F L 74 15 143/82 H 92 L 04/28/19 07:30 80 18 04/28/19 04:06 97.6 F 74 16 128/78 92 L 04/28/19 00:09 82 12 93 L 04/28/19 00:00 97.5 F L 70 16 121/70 93 L Weight Weight 115 lb I&O: 04/27/19 04/28/19 04/29/19 06:59 06:59 06:59 Intake Total 2791 Output Total 400 Balance 2391 Result Diagrams: 04/28/19 04:56 04/28/19 10:03 Hospitalist ROS - Medication Medications: Active Medications Generic Name Dose Route Start Last Admin Trade Name Freq PRN Reason Stop Dose Admin Acetaminophen 650 mg 04/27/19 13:13 04/28/19 04:13 Tylenol PO 650 mg Q4H PRN Administration Headache/Fever/Mild Pain (1-3) Albuterol/Ipratropium 3 ml 04/27/19 19:00 04/28/19 07:30 Duoneb NEB 3 ml [id number] TIFF Administration Enoxaparin Sodium 40 mg 04/28/19 09:00 04/28/19 08:50 Lovenox SC 40 mg 0900 TIFF Administration Hydrocortisone Sodium Succinate 50 mg 04/27/19 14:00 04/28/19 02:22 Solu-Cortef IVP 50 mg 0200,1400 TIFF Administration Levofloxacin 750 mg/ Device 150 mls @ 100 mls/hr 04/27/19 13:15 04/27/19 16: 41 IVPB 150 mls Q24HR TIFF Administration Mometasone Furoate/Formoterol Fumar 2 puff 04/27/19 18:30 04/28/19 07:27 Dulera 100 Mcg/5 Mcg Inhaler INH 2 puff BID-RT TIFF Administration - Exam General Appearance: awake alert Neck: no JVD Heart: RRR, no murmur Gastrointestinal: soft, normal bowel sounds Extremities: no edema Hosp A/P (1) PNA (pneumonia) Code(s): J18.9 - PNEUMONIA, UNSPECIFIED ORGANISM Status: Acute Qualifiers: Pneumonia type: due to Pneumococcus Laterality: right Lung location: middle lobe of lung Qualified Code(s): J13 - Pneumonia due to Streptococcus pneumoniae (2) Hypokalemia Code(s): E87.6 - HYPOKALEMIA Status: Acute (3) Acute respiratory failure with hypoxia Code(s): J96.01 - ACUTE RESPIRATORY FAILURE WITH HYPOXIA Status: Acute (4) Myasthenia gravis Code(s): G70.00 - MYASTHENIA GRAVIS WITHOUT (ACUTE) EXACERBATION Status: Chronic - Plan cultures neg at 24hrs cont iv antibcont stress streroids speech Tx consult
[2019-04-28] MEDS ORDERED: Azithromycin 500 MG in Sodium Chloride 0.9% 250 ML 250 ML IVPB SCH (12:00)
[2019-04-28] MEDS: D5 1/2 NS w/40 mEq KCL 1,000 ML IV SCH (15:19)
[2019-04-29] MEDS: Hydrocortisone Sod Succ/PF 100 mg/2 ml Vial IVP SCH ×2 (02:16→13:14)
[2019-04-29] MEDS: D5 1/2 NS w/40 mEq KCL 1,000 ML IV SCH ×3 (05:08→21:04)
[2019-04-29] MEDS: Mometasone/Formoterol 120 PUFF INHALER INH SCH ×2 (06:54→19:34)
[2019-04-29] MEDS: Enoxaparin Sodium 40 MG/0.4 ML SYRINGE SC SCH (08:57)
--- NOTE | 2019-04-29 11:32 | PDOC.HOSPP ---
- Subjective Encounter Date: 04/29/19 Encounter Time: 11:31 Subjective: lessb, cugh - Objective Vital Signs & Weight: Vital Signs (12 hours) Temp Pulse Resp BP Pulse Ox 04/29/19 11:15 98.1 F 81 16 163/88 H 94 L 04/29/19 08:00 94 L 04/29/19 07:34 97.4 F L 81 16 141/85 H 94 L 04/29/19 06:50 79 18 95 04/29/19 03:32 98.1 F 80 16 139/86 92 L 04/29/19 01:10 95 04/28/19 23:32 97.3 F L 77 20 130/80 92 L Weight Admit Weight 115 lb Weight 115 lb I&O: 04/28/19 04/29/19 04/30/19 06:59 06:59 06:59 Intake Total 2791 1650 Output Total 400 500 Balance 2391 1150 Result Diagrams: 04/28/19 04:56 04/28/19 10:03 Hospitalist ROS - Medication Medications: Active Medications Generic Name Dose Route Start Last Admin Trade Name Freq PRN Reason Stop Dose Admin Acetaminophen 650 mg 04/27/19 13:13 04/28/19 04:13 Tylenol PO 650 mg Q4H PRN Administration Headache/Fever/Mild Pain (1-3) Albuterol/Ipratropium 3 ml 04/27/19 19:00 04/29/19 06:50 Duoneb NEB 3 ml [id number] TIFF Administration Enoxaparin Sodium 40 mg 04/28/19 09:00 04/29/19 08:57 Lovenox SC 40 mg 0900 TIFF Administration Hydrocortisone Sodium Succinate 50 mg 04/27/19 14:00 04/29/19 02:16 Solu-Cortef IVP 50 mg 0200,1400 TFIF Administration Levofloxacin 750 mg/ Device 150 mls @ 100 mls/hr 04/27/19 13:15 04/28/19 13: 08 IVPB 150 mls Q24HR TIFF Administration Potassium Chloride/Dextrose/Sod Cl 1,000 mls @ 75 mls/hr 04/28/19 11:45 04/29 05:08 D5 1/2 Ns W/40 Meq Kcl IV 1,000 mls .[id number] TIFF Administration Mometasone Furoate/Formoterol Fumar 2 puff 04/27/19 18:30 04/29/19 06:54 Dulera 100 Mcg/5 Mcg Inhaler INH 2 puff BID-RT TIFF Administration - Exam General Appearance: awake alert Neck: no JVD Heart: RRR, no murmur Respiratory: CTAB Gastrointestinal: soft, normal bowel sounds Extremities: no edema Hosp A/P (1) PNA (pneumonia) Code(s): J18.9 - PNEUMONIA, UNSPECIFIED ORGANISM Status: Acute Qualifiers: Pneumonia type: due to Pneumococcus Laterality: right Lung location: middle lobe of lung Qualified Code(s): J13 - Pneumonia due to Streptococcus pneumoniae (2) Hypokalemia Code(s): E87.6 - HYPOKALEMIA Status: Acute (3) Acute respiratory failure with hypoxia Code(s): J96.01 - ACUTE RESPIRATORY FAILURE WITH HYPOXIA Status: Acute (4) Myasthenia gravis Code(s): G70.00 - MYASTHENIA GRAVIS WITHOUT (ACUTE) EXACERBATION Status: Chronic - Plan cultures neg at 48hrs cont iv antibx cont stress streroids speech Tx consult home tomorrow if afebrile, C&S neg
--- NOTE | 2019-04-29 14:35 | RAD ---
MODIFIED BARIUM SWALLOW IN PRESENCE OF SPEECH THERAPIST: HISTORY: Dysphagia, feeding difficulties FINDINGS: Laryngeal penetration is noted. No mohini aspiration is seen. No persistent pooling of contrast is seen in the valleculae or piriform sinuses. Please see recommendations of the speech therapist for further management.
[2019-04-29] MEDS: Acetaminophen 325 MG TAB PO PRN (21:04)
[2019-04-29] MEDS ORDERED: Pseudoephedrine HCl 30 MG TAB PO PRN (21:47)
[2019-04-30] MEDS: Hydrocortisone Sod Succ/PF 100 mg/2 ml Vial IVP SCH ×2 (01:47→13:18)
[2019-04-30] MEDS: D5 1/2 NS w/40 mEq KCL 1,000 ML IV SCH (05:11)
[2019-04-30] MEDS: Mometasone/Formoterol 120 PUFF INHALER INH SCH ×2 (08:20→18:38)
[2019-04-30] MEDS: Enoxaparin Sodium 40 MG/0.4 ML SYRINGE SC SCH (08:51)
--- NOTE | 2019-04-30 09:40 | PDOC.HOSPP ---
- Subjective Encounter Date: 04/30/19 Encounter Time: 09:39 Subjective: complain of weakness, failed swallow study - Objective Vital Signs & Weight: Vital Signs (12 hours) Temp Pulse Resp BP Pulse Ox 04/30/19 08:21 87 L 04/30/19 08:19 81 18 87 L 04/30/19 07:09 98.1 F 94 16 164/96 H 93 L 04/30/19 04:15 98.0 F 83 16 149/85 H 92 L 04/30/19 00:45 97.3 F L 84 16 136/86 93 L 04/29/19 23:58 77 16 95 Weight Admit Weight 115 lb Weight 115 lb I&O: 04/29/19 04/30/19 05/01/19 06:59 06:59 06:59 Intake Total 1650 2800 Output Total 500 3900 Balance 1150 -1100 Result Diagrams: 04/28/19 04:56 04/28/19 10:03 Hospitalist ROS - Medication Medications: Active Medications Generic Name Dose Route Start Last Admin Trade Name Freq PRN Reason Stop Dose Admin Acetaminophen 650 mg 04/27/19 13:13 04/29/19 21:04 Tylenol PO 650 mg Q4H PRN Administration Headache/Fever/Mild Pain (1-3) Albuterol/Ipratropium 3 ml 04/27/19 19:00 04/30/19 08:19 Duoneb NEB 3 ml [id number] TIFF Administration Enoxaparin Sodium 40 mg 04/28/19 09:00 04/30/19 08:51 Lovenox SC 40 mg 0900 TIFF Administration Hydrocortisone Sodium Succinate 50 mg 04/27/19 14:00 04/30/19 01:47 Solu-Cortef IVP 50 mg 0200,1400 TIFF Administration Levofloxacin 750 mg/ Device 150 mls @ 100 mls/hr 04/27/19 13:15 04/29/19 13: 14 IVPB 150 mls Q24HR TIFF Administration Mometasone Furoate/Formoterol Fumar 2 puff 04/27/19 18:30 04/30/19 08:20 Dulera 100 Mcg/5 Mcg Inhaler INH 2 puff BID-RT TIFF Administration - Exam General Appearance: awake alert Neck: no JVD Heart: RRR, no murmur Respiratory: CTAB Gastrointestinal: soft, normal bowel sounds Extremities: no edema Hosp A/P (1) PNA (pneumonia) Code(s): J18.9 - PNEUMONIA, UNSPECIFIED ORGANISM Status: Acute Qualifiers: Pneumonia type: due to Pneumococcus Laterality: right Lung location: middle lobe of lung Qualified Code(s): J13 - Pneumonia due to Streptococcus pneumoniae (2) Hypokalemia Code(s): E87.6 - HYPOKALEMIA Status: Resolved (3) Acute respiratory failure with hypoxia Code(s): J96.01 - ACUTE RESPIRATORY FAILURE WITH HYPOXIA Status: Acute (4) Myasthenia gravis with exacerbation Code(s): G70.01 - MYASTHENIA GRAVIS WITH (ACUTE) EXACERBATION Status: Acute - Plan descalate atibx PT/OT CM consult placement institute mycophenylate ( patoent has been on " holiday")
[2019-04-30] MEDS: Fluticasone Propionate Nasal Spray 16 gm Bottle NASAL SCH (10:49)
[2019-04-30] MEDS: Acetaminophen 325 MG TAB PO PRN ×2 (13:22→17:56)
[2019-04-30] MEDS: Mycophenolate 250 MG CAP PO SCH (21:14)
[2019-05-01] MEDS: Hydrocortisone Sod Succ/PF 100 mg/2 ml Vial IVP SCH ×2 (01:15→14:03)
[2019-05-01] MEDS: Mometasone/Formoterol 120 PUFF INHALER INH SCH ×2 (07:35→19:46)
[2019-05-01] MEDS ORDERED: guaiFENesin ER 600 MG TAB PO PRN (07:45)
[2019-05-01] MEDS ORDERED: Loratadine 10 MG TAB PO PRN (07:46)
[2019-05-01] MEDS ORDERED: hydrALAZINE 20 MG/ML VIAL SLOW IVP PRN (07:46)
[2019-05-01] MEDS ORDERED: Artificial Tears 18 DROP/0.9 ML EA EYE PRN (07:46)
[2019-05-01] MEDS ORDERED: Metoclopramide HCl 10 MG TAB PO PRN (07:46)
[2019-05-01] MEDS ORDERED: Metoclopramide HCl 10 MG/2 ML VIAL IVP PRN (07:46)
[2019-05-01] MEDS ORDERED: Loperamide HCl 2 MG CAP PO PRN (07:46)
[2019-05-01] MEDS ORDERED: Calcium Carbonate 500 MG ChewTAB PO PRN (07:46)
[2019-05-01] MEDS ORDERED: Diabetic Tussin 200 MG/10 ML UDCUP PO PRN (07:46)
[2019-05-01] MEDS ORDERED: Sodium Chloride 0.65% Nasal 44 ML BOT EA NARE PRN (07:46)
[2019-05-01] MEDS ORDERED: Senokot S 8.6-50 MG TAB PO PRN (07:46)
[2019-05-01] MEDS ORDERED: Cepastat Lozenges 1 LOZ PO PRN (07:46)
[2019-05-01] MEDS ORDERED: Bisacodyl 10 MG SUPP PR PRN (07:46)
[2019-05-01] MEDS: Fluticasone Propionate Nasal Spray 16 gm Bottle NASAL SCH (07:59)
[2019-05-01] MEDS: Enoxaparin Sodium 40 MG/0.4 ML SYRINGE SC SCH (07:59)
[2019-05-01] MEDS: Mycophenolate 250 MG CAP PO SCH ×2 (07:59→21:05)
[2019-05-01 08:31] LABS: #Monocytes 0.5 thou/uL (0.11-0.59); %Eosinophils 0.2 % (0.0-10.0); %Lymphocytes 18.4 % (21.0-51.0); %Monocytes 8.8 % (0.0-10.0); %Neutrophils 72.5 % (42.0-75.0); Hemoglobin 15.2 g/dL (12.0-16.0); Mean Corpuscular HGB CONC 32.4 g/dL (32.0-36.0); Mean Corpuscular Hemoglobin 29.7 pg (27.0-31.0); Mean Corpuscular Volume 91.7 fL (78.0-98.0); Mean Platelet Volume 6.9 fL (7.4-10.4); Platelet Count 304 thou/uL (130-400); RBC Distribution Width 12.6 % (11.5-14.5); Red Blood Cell (RBC) Count 5.13 mill/uL (4.20-5.40); White Blood Cell (WBC) Count 5.5 thou/uL (4.8-10.8)
[2019-05-01 08:47] LABS: ALT (SGPT) 13 U/L (8-55); AST (SGOT) 20 U/L (5-34); Alkaline Phosphatase 63 U/L (40-110); Anion Gap 12 mmol/L (10-20); BUN (Urea Nitrogen) 4 mg/dL (9.8-20.1); Bilirubin, Total 0.4 mg/dL (0.2-1.2); Calc. Creatinine Clearance 78 mL/min (70-130); Calcium 8.4 mg/dL (7.8-10.44); Carbon Dioxide 26 mmol/L (23-31); Chloride 95 mmol/L (98-107); Estimated GFR-MDRD Greater than 90; Globulin 3.1 g/dL (2.4-3.5); Glucose 114 mg/dL (80-115); Magnesium 1.5 mg/dL (1.6-2.6); Phosphorus 3.2 mg/dL (2.3-4.7); Potassium 3.8 mmol/L (3.5-5.1); Protein, Total 6.1 g/dL (6.0-8.3); Sodium 129 mmol/L (136-145)
[2019-05-01] MEDS ORDERED: Magnesium Sulfate 3 GM in Sodium Chloride 0.9% 100 ML IVPB SCH (10:45)
--- NOTE | 2019-05-01 11:52 | PDOC.HOSPP ---
- Subjective Encounter Date: 05/01/19 Encounter Time: 08:15 Subjective: Patient seen and examined. No new complaints. No overnight events - Objective Vital Signs & Weight: Vital Signs (12 hours) Temp Pulse Resp BP Pulse Ox 05/01/19 10:50 97.1 F L 91 18 132/86 93 L 05/01/19 08:00 93 L 05/01/19 07:37 98.6 F 88 16 123/81 93 L 05/01/19 07:35 85 16 05/01/19 07:25 85 16 05/01/19 03:19 97.6 F 85 16 122/82 92 L 05/01/19 01:52 86 16 5 L 04/30/19 23:57 96 Weight Admit Weight 115 lb Weight 115 lb I&O: 04/30/19 05/01/19 05/02/19 06:59 06:59 06:59 Intake Total 2800 615 Output Total 3900 2050 Balance -1100 -1435 Result Diagrams: 05/01/19 07:57 05/01/19 07:56 Additional Labs: Accuchecks 05/01/19 11:29 POC Glucose 91 Radiology Reviewed by me: Yes Hospitalist ROS - Review of Systems ENT: denies: ear pain, ear discharge, nose pain, nose discharge, nose congestion , mouth pain, mouth swelling, throat pain, throat swelling, other Respiratory: denies: cough, dry, shortness of breath, hemoptysis, SOB with excertion, pleuritic pain, sputum, wheezing, other Cardiovascular: denies: chest pain, palpitations, orthopnea, paroxysmal noc. dyspnea, edema, light headedness, other Gastrointestinal: denies: nausea, vomiting, abdominal pain, diarrhea, constipation, melena, hematochezia, other Genitourinary: denies: dysuria, frequency, incontinence, hematuria, retention, other Musculoskeletal: denies: neck pain, shoulder pain, arm pain, back pain, hand pain, leg pain, foot pain, other - Medication Medications: Active Medications Generic Name Dose Route Start Last Admin Trade Name Freq PRN Reason Stop Dose Admin Acetaminophen 650 mg 04/27/19 13:13 04/30/19 17:56 Tylenol PO 650 mg Q4H PRN Administration Headache/Fever/Mild Pain (1-3) Albuterol/Ipratropium 3 ml 04/27/19:00 05/01/19 07:25 Duoneb NEB 3 ml [id number] TIFF Administration Enoxaparin Sodium 40 mg 04/28/19 09:00 05/01/19 07:59 Lovenox SC 40 mg 0900 TIFF Administration Fluticasone Propionate 1 gm 05/01/19 09:00 05/01/19 07:59 Flonase Nasal [place] NASAL 1 spray DAILY TIFF Administration Hydrocortisone Sodium Succinate 50 mg 04/27/19 14:00 05/01/19 01:15 Solu-Cortef IVP 50 mg 0200,1400 TIFF Administration Magnesium Sulfate 3 gm/ Sodium 106 mls @ 100 mls/hr 05/01/19 10:45 05/01/19 11:35 Chloride IVPB 05/01/19 12:45 106 mls NOW TIFF Administration Levofloxacin 500 mg 05/01/19 06:00 05/01/19 06:14 Levaquin PO 500 mg 0600 TIFF Administration Mometasone Furoate/Formoterol Fumar 1 puff 04/30/19 18:30 05/01/19 07:35 Dulera 200 Mcg/5 Mcg Inhaler INH 1 puff BID-RT TIFF Administration Mycophenolate Mofetil 1,000 mg 04/30/19 21:00 05/01/19 07:59 Cellcept PO 1,000 mg BID TIFF Administration - Exam General Appearance: NAD, awake alert Eye: PERRL, anicteric sclera ENT: normocephalic atraumatic, no oropharyngeal lesions Neck: supple, symmetric, no JVD Heart: RRR, no murmur, no gallops Respiratory: CTAB, no wheezes, no rales Gastrointestinal: soft, non-tender, non-distended, normal bowel sounds Extremities: no cyanosis, no clubbing, no edema Skin: normal turgor, no lesions Neurological: no focal deficits Musculoskeletal: normal tone, normal strength Psychiatric: normal affect, normal behavior Hosp A/P (1) Myasthenia gravis with exacerbation Code(s): G70.01 - MYASTHENIA GRAVIS WITH (ACUTE) EXACERBATION Status: Acute (2) PNA (pneumonia) Code(s): J18.9 - PNEUMONIA, UNSPECIFIED ORGANISM Status: Acute Qualifiers: Pneumonia type: due to Pneumococcus Laterality: right Lung location: middle lobe of lung Qualified Code(s): J13 - Pneumonia due to Streptococcus pneumoniae (3) COPD exacerbation Code(s): J44.1 - CHRONIC OBSTRUCTIVE PULMONARY DISEASE W (ACUTE) EXACERBATION Status: Acute (4) Hypokalemia Code(s): E87.6 - HYPOKALEMIA Status: Resolved (5) Acute respiratory failure with hypoxia Code(s): J96.01 - ACUTE RESPIRATORY FAILURE WITH HYPOXIA Status: Resolved (6) Protein-calorie malnutrition, severe Code(s): E43 - UNSPECIFIED SEVERE PROTEIN-CALORIE MALNUTRITION Status: Chronic - Plan old records reviewed/req, continue antibiotics, PT/OT, social research assistant 05/01/19 medication reviewed and continue to provide supportive care, continue current levaquin, await rehab placement
[2019-05-02] MEDS: Hydrocortisone Sod Succ/PF 100 mg/2 ml Vial IVP SCH (02:44)
[2019-05-02] MEDS: Mometasone/Formoterol 120 PUFF INHALER INH SCH (07:20)
[2019-05-02] MEDS ORDERED: predniSONE 20 MG TAB PO SCH (08:00)
[2019-05-02] MEDS: Mycophenolate 250 MG CAP PO SCH (08:42)
[2019-05-02] MEDS: Enoxaparin Sodium 40 MG/0.4 ML SYRINGE SC SCH (08:42)
[2019-05-02 08:52] LABS: Anion Gap 12 mmol/L (10-20); BUN (Urea Nitrogen) 4 mg/dL (9.8-20.1); Calc. Creatinine Clearance 71 mL/min (70-130); Calcium 8.4 mg/dL (7.8-10.44); Carbon Dioxide 29 mmol/L (23-31); Chloride 95 mmol/L (98-107); Estimated GFR-MDRD Greater than 90; Glucose 154 mg/dL (80-115); Magnesium 1.9 mg/dL (1.6-2.6); Potassium 3.4 mmol/L (3.5-5.1); Sodium 133 mmol/L (136-145)
[2019-05-02] MEDS ORDERED: Potassium Chloride 20 MEQ TAB PO SCH (09:15)
--- NOTE | 2019-05-02 11:00 | DIS ---
DATE OF ADMISSION: 04/27/2019 DATE OF DISCHARGE: 05/02/2019 PRIMARY CARE PHYSICIAN: Dr. Reynaldo Phoenix. DISCHARGE DISPOSITION: Home with home health. PRIMARY DISCHARGE DIAGNOSES: 1. Myasthenia gravis exacerbation. 2. Pneumonia. 3. Hypokalemia. 4. Hyponatremia. 5. Chronic obstructive pulmonary disease exacerbation. SECONDARY DISCHARGE DIAGNOSES: 1. Severe protein-calorie malnutrition. 2. Myasthenia gravis. PRIMARY PROCEDURE/OPERATION: None. RADIOLOGICAL INVESTIGATIONS: Chest x-ray on admission showed right basilar pneumonia. Modified barium swallow with Speech Therapy showed laryngeal penetration without any aspiration. SIGNIFICANT LABORATORY DATA: WBC 5.5, hemoglobin 15.2, platelet 304. Sodium 133, potassium 3.4, BUN 4, creatinine 0.65, calcium 8.4, magnesium 1.9. LFT, normal. Blood culture, negative. DISCHARGE MEDICATIONS: 1. Flonase nasal spray daily. 2. Mucinex 600 mg p.o. twice daily p.r.n. 3. DuoNeb q.6 hourly. 4. Levaquin 500 mg p.o. daily for 3 more days. 5. Dulera 1 puff inhalation b.i.d. 6. CellCept 1 g p.o. b.i.d. 7. Prednisone 20 mg p.o. daily for 7 days and then 10 mg p.o. daily. CONTRAINDICATION: None. CODE STATUS: Full code. INPATIENT CONSULT: None. ALLERGIES: PENICILLIN AND SULFA DRUGS. DISCHARGE PLAN: Posthospital, the patient will follow up with primary care physician. The patient is instructed to make appointment with primary neurologist. HOSPITAL COURSE: A 63-year-old female with above-mentioned medical problem, who was admitted by Dr. Lai on April 27, 2019. Please see his H and P for further detail. The patient was having gradual weakness as well as the patient was having cough productive of sputum and shortness of breath. Chest x-ray was consistent with right lower lobe pneumonia, which was suspected from aspiration. The patient also had modified barium swallow, which showed laryngeal penetration. The patient has underlying history of myasthenia gravis, and the patient was not taking CellCept that might have precipitated her motor weakness. The patient was treated with IV fluid, antibiotic therapy, and steroid while in hospital. With optimum medical therapy, the patient's condition significantly improved. Initially, the plan was to transfer her to custodial home, but the patient had a significant improvement, and that is why the patient decided to go home with home health. With help of transplant case manager, we arranged home health. She had abnormal electrolytes that were replaced while in hospital including magnesium, potassium replaced, and her sodium is already improving. On discharge, we prescribed tapering doses of prednisone and empiric antibiotic therapy for few more days. By the time of discharge, the patient is on room air, afebrile, tolerating p.o. well, and ambulatory. The patient is seen and examined at bedside today. PHYSICAL EXAMINATION: VITAL SIGNS: Currently, temperature 97.5, pulse 86, respiratory rate 20, saturation 91%, blood pressure 144/82, weight 115 pounds. GENERAL: The patient is currently alert and awake, in no acute distress. HEENT: Head, normocephalic and atraumatic. Eyes; pupils round and reactive to light. Extraocular muscle intact. ENT; oropharynx within normal limits. Moist mucous membranes. No oral lesion. No pharyngeal erythema. No exudate. NECK: Supple. No JVD. No meningeal signs of irritation. LUNGS: Clear to auscultation without any rhonchi or rales. CARDIAC: S1 and S2. Regular without any murmur. No gallop. No rub. ABDOMEN: Soft. Bowel sounds present. Nontender. Nondistended. No organomegaly. No mass. EXTREMITIES: No edema. NEUROLOGIC: Nonfocal examination. Job ID: [id number]
[2019-05-02 11:54] VITALS: BP 138/84; TEMP 97.9
--- NOTE | 2019-05-03 22:55 | PQF ---
TANJA GA ROY MD [id number] DEB FUENTES [id number] CLINICAL DOCUMENTATION CLARIFICATION FORM: POST DISCHARGE Addendum to original discharge summary date: ____ Late entry note date: __ DATE: 05/03/19 ATTN: Ga Powell Please exercise your independent, professional judgment in responding to the clarification form. Clinical indicators are provided on the bottom of this form for your review Can you please further clarify the specificity of Pneumonia? Please check appropriate box(s): [ x ] Aspiration Pneumonia [ ] Pneumonia due to streptococcus pneumonia [ ] Pneumonia of unknown etiology [ ] Other diagnosis [ ] Unable to determine In addition, please specify: Present on Admission (POA): [ x ] Yes [ ] No [ ] Unable to determine For continuity of documentation, please document condition throughout progress notes and discharge summary. Thank You. CLINICAL INDICATORS - SIGNS / SYMPTOMS / LABS DS pg.1- Chest X ray was consistent with right lower lobe pneumonia, which was suspected from aspiration H and P pg.2- Pneumonia, right lower lobe Hospitalist PN 04/28 Dr. Lai pg.3- Pneumonia due to streptococcus pneumonia RISK FACTORS Hospitalist PN 05/01 pg.5- COPD Exacerbation Pneumonia- DS pg.1 Severe protein calorie malnutrition- DS pg.1 Acute respiratory failure- H and P pg.2 Tobacco abuse- H and P pg.1 TREATMENTS: chest X ray 04/27 Speech Modified Barium swallow 04/29 IV fluids- JUL 22 IV antibiotics- MAR Duo-NEB- JUL 22 Hydrocortisone 50mg IV- JUL 22 (This form is maintained as a part of the permanent medical record) 2014 [employer]. All Rights Reserved [email or web address] [not provided] MTDD
== END 2019-05-02 12:25 | disposition home health service (06) | DRG 177 ==
LOC: ERS 10:26 → ERHOLD 12:34 → SJJU 14:28
PROVIDERS: ADMIT Internal Medicine; ATTEND Internal Medicine
DX: J69.0 Pneumonitis due to inhalation of food and vomit (principal); E43 Unspecified severe protein-calorie malnutrition; G70.01 Myasthenia gravis with (acute) exacerbation; J96.21 Acute and chronic respiratory failure with hypoxia; J44.0 Chronic obstructive pulmonary disease with (acute) lower respiratory infection; E27.1 Primary adrenocortical insufficiency; Z68.1 Body mass index [BMI] 19.9 or less, adult; E87.1 Hypo-osmolality and hyponatremia; J44.1 Chronic obstructive pulmonary disease with (acute) exacerbation; E87.6 Hypokalemia; F32.9 Major depressive disorder, single episode, unspecified; F17.210 Nicotine dependence, cigarettes, uncomplicated; Z79.51 Long term (current) use of inhaled steroids; Z90.710 Acquired absence of both cervix and uterus; Z90.49 Acquired absence of other specified parts of digestive tract; Z99.81 Dependence on supplemental oxygen; Z88.2 Allergy status to sulfonamides; Z88.0 Allergy status to penicillin
CPT/HCPCS: 36415; 36416; 71045; 74230; 80048; 80053; 80307; 82533; 83735; 84100; 85025; 87040; 93005; 94640; 94760; 96365; 96367; J0456; J0696; J1650; J1720; J1956; J3475; J3480; J3490; J7050; J7512; J7517; J7620

== ENCOUNTER 2019-10-01 20:48 | Inpatient (IN) | payer MEDICARE, MEDICAID ==
[2019-10-01] MEDS ORDERED: Diltiazem 125 MG/25 ML ONE (21:25)
[2019-10-01 21:33] LABS: #Basophils 0.1 thou/uL (0.0-0.2); #Eosinphils 0.1 thou/uL (0.0-0.7); #Lymphocytes 2.2 thou/uL (1.20-3.40); #Monocytes 0.6 thou/uL (0.11-0.59); #Neutrophils 5.8 thou/uL (1.40-6.50); %Basophils 1.2 % (0.0-1.0); %Eosinophils 1.2 % (0.0-10.0); %Lymphocytes 25.4 % (21.0-51.0); %Monocytes 6.9 % (0.0-10.0); %Neutrophils 65.3 % (42.0-75.0); Hemoglobin 14.5 g/dL (12.0-16.0); Mean Corpuscular HGB CONC 31.5 g/dL (32.0-36.0); Mean Corpuscular Hemoglobin 29.7 pg (27.0-31.0); Mean Corpuscular Volume 94.4 fL (78.0-98.0); Mean Platelet Volume 8.1 fL (7.4-10.4); Platelet Count 310 thou/uL (130-400); RBC Distribution Width 13.7 % (11.5-14.5); Red Blood Cell (RBC) Count 4.87 mill/uL (4.20-5.40); White Blood Cell (WBC) Count 8.8 thou/uL (4.8-10.8)
[2019-10-01 21:49] LABS: Anion Gap 14 mmol/L (10-20); BUN (Urea Nitrogen) Less than 4 mg/dL (9.8-20.1); Calc. Creatinine Clearance 0 mL/min (70-130); Carbon Dioxide 23 mmol/L (23-31); Chloride 99 mmol/L (98-107); Estimated GFR-MDRD 85; Sodium 132 mmol/L (136-145)
[2019-10-01 21:50] LABS: ALT (SGPT) 11 U/L (8-55); AST (SGOT) 20 U/L (5-34); Albumin 3.5 g/dL (3.4-4.8); Alkaline Phosphatase 116 U/L (40-110); Bilirubin, Total 0.7 mg/dL (0.2-1.2); Calcium 8.3 mg/dL (7.8-10.44); Globulin 3.3 g/dL (2.4-3.5); Glucose 106 mg/dL (80-115); Magnesium 1.6 mg/dL (1.6-2.6); Protein, Total 6.8 g/dL (6.0-8.3)
--- NOTE | 2019-10-01 21:50 | RAD ---
Exam: Chest one view HISTORY:Dyspnea. Irregular heartbeat. Comparison: 04/27/2019 FINDINGS: Cardiac silhouette:Cardiomegaly. Aorta: Unremarkable Pulmonary vessels: Normal Costophrenic angles: Small bilateral pleural effusions LUNGS: Inflation with chronic lung parenchymal changes. Right lower lobe parenchymal opacification. Pneumothorax: None Osseous abnormalities: None IMPRESSION: 1. Bilateral pleural effusions 2. Emphysema/COPD with chronic lung parenchymal changes. 3. Opacification the right lung parenchyma due to atelectasis, pneumonia or aspiration.
[2019-10-01] MEDS ORDERED: Metoprolol Tartrate 5 MG/5 ML VIAL ONE (22:10)
[2019-10-01] MEDS ORDERED: Furosemide 40 MG/4 ML VIAL ONE (22:52)
[2019-10-02 00:24] VITALS: BMI 19.3
[2019-10-02] MEDS ORDERED: Ondansetron PF 4 MG/2 ML Vial IVP PRN (00:33)
[2019-10-02] MEDS ORDERED: Ondansetron ODT 4 MG TAB SL PRN (00:33)
[2019-10-02] MEDS ORDERED: Acetaminophen 650 MG Suppository PR PRN (00:34)
[2019-10-02] MEDS ORDERED: Diltiazem HCl 125 MG, Admixture Fee 1 EACH in Sodium Chloride 0.9% 100 ML IVPB SCH ×3 (00:45→14:30)
--- NOTE | 2019-10-02 01:06 | PDOC.HHP ---
Hospitalist HPI - History of Present Illness Lower leg swelling History of Present Illness: Patient presents with multiple complaints, the main one she is concerned about right now is the worsening lower extremity swelling. She reports having minimal swelling in her ankles in the past but has not experienced the amount of fluid retention she has in her legs now. It has been gradually worsening for the last week. It started in her feet and is now extending up to her thighs. States she has been less active than she normally is, due to staying in doors but has been moving somewhat around her home. She has been sewing and doing other sedentary type of activities. Denies any cough or chest pain but developed palpitations and has had shortness of breath with exertion as well as orthopnea. She noted her HR was elevated in the 130s range. Denies any fevers or chills. Reports having issues with her urine. Describes a dark yellow appearance to her urine and has had minimal urine output for the last two days with some suprapubic discomfort/swelling. Denies any nausea or vomiting. Has not had any issues with her bowel movements. She states her daughter is a PA that works at the [employer]. Of not patient has had an echo in the past but this was more than 3 years ago. At that time her echo was normal. She was told she had a "healthy strong heart" . ED Course: On arrival to the ED she had a HR of 152. BP 123/95. EKG done showed AFIB RVR with HR of 165. She had labs done that showed a BNP of 1169.4, Trop negative. CBC unremarkable. Mg 1.6. Na+ 132. Potassium 4.0, BUN 4, Creat 0.69, GFR 85. Alk phos 116, CMP otherwise normal. CXR: IMPRESSION: 1. Bilateral pleural effusions 2. Emphysema/COPD with chronic lung parenchymal changes. 3. Opacification the right lung parenchyma due to atelectasis, pneumonia or aspiration. She was given 40 mg IV Lasix in the ED, which she states has helped significantly. Reports having significant urge to urinate and has been waiting for help while in ED to get to the bathroom. For her HR, she was given Diltiazem 10 mg IV x 2, Also started on a cardizem drip at 5 mg/hr. Given 5 mg IV of metoprolol as well. Hospitalist ROS - Review of Systems Constitutional: reports: malaise. denies: fever, chills, sweats, weakness, other Eyes: denies: pain, vision change, conjunctivae inflammation, eyelid inflammation, redness, other ENT: denies: ear pain, ear discharge, nose pain, nose discharge, nose congestion , mouth pain, mouth swelling, throat pain, throat swelling, other Respiratory: reports: shortness of breath. denies: cough, dry, hemoptysis, SOB with excertion, pleuritic pain, sputum, wheezing, other Cardiovascular: reports: palpitations, orthopnea. denies: chest pain, paroxysmal noc. dyspnea, edema, light headedness, other Gastrointestinal: reports: abdominal pain (due to urgent need to urinate). denies: nausea, vomiting, diarrhea, constipation, melena, hematochezia, other Genitourinary: reports: other (decreased urine output for the last two days.). denies: dysuria, frequency, incontinence, hematuria, retention Musculoskeletal: reports: other (Lower extremity swelling/edema) Skin: denies: rash, lesions, hilario, bruising, other Neurological: denies: weakness, numbness, incoordination, change in speech, confusion, seizures, other - Medication Medications: ALLERGIES: Penicillin, Sulfa, Tetracycline. CURRENT MEDICATIONS: mycophenolate mofetil SatOctober 01, 2019 21:30 AMANDEEP Meyer Alexanda tablet : Strength - 500 mg : ORAL Patient Dose: tab(s) Oral 2 times a day.2 tabs in AM, 1 Tab in PM. Flonase SatOctober 01, 2019 21:31 AMANDEEP Meyer Alexanda spray,suspension : Strength - 50 mcg/actuation : NASAL Patient Dose: 2 puff(s) Inhaler 2 times a day. Symbicort SatOctober 01, 2019 21:31 AMANDEEP Meyer Alexanda HFA aerosol inhaler : Strength - 80 mcg-4.5 mcg/actuation : INHALATION Patient Dose: 2 puff(s) Inhaler 2 times a day. 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.) - Past Surgical History Past Surgical History: reports: Appendectomy, Hysterectomy - Family History Family History: reports: no pertinent history - Social History Smoking Status: Former smoker Tobacco Type: cigarettes Alcohol: reports: None Drugs: reports: none Living Situation: With Family Activity level: independent ambulation - Exam General Appearance: NAD Eye: PERRL, anicteric sclera ENT: dry oral mucosa Neck: supple, no lymphadenopathy Heart: normal peripheral pulses, irregular Respiratory: CTAB, no wheezes, no rales, no ronchi, normal chest expansion, no tachypnea Gastrointestinal: soft, non-tender, tender to palpation, distended Gastrointestinal - other findings: Patient with severe urge to urinate, RN informed Extremities: 2+ LE edema Extremities - other findings: extending to her thighs Skin: no rashes Neurological: no new deficit Neurological - other findings: Known myasthenia gravis Psychiatric: normal affect, normal behavior, A&O x 3 Hospitalist Results - Labs Result Diagrams: 10/01/19 21:14 10/01/19 21:14 Lab results: WBC 8.8 thou/uL (4.8-10.8) 10/01/19 21:14 Hgb 14.5 g/dL (12.0-16.0) 10/01/19 21:14 Hct 46.0 % (36.0-47.0) 10/01/19 21:14 MCV 94.4 fL (78.0-98.0) 10/01/19 21:14 Plt Count 310 thou/uL (130-400) 10/01/19 21:14 Neutrophils % 65.3 % (42.0-75.0) 10/01/19 21:14 Sodium 132 mmol/L (136-145) L 10/01/19 21:14 Potassium 4.0 mmol/L (3.5-5.1) 10/01/19 21:14 Chloride 99 mmol/L (98-107) 10/01/19 21:14 Carbon Dioxide 23 mmol/L (23-31) 10/01/19 21:14 BUN Less than 4 mg/dL (9.8-20.1) L 10/01/19 21:14 Creatinine 0.69 mg/dL (0.6-1.1) 10/01/19 21:14 Glucose 106 mg/dL (80-115) 10/01/19 21:14 Calcium 8.3 mg/dL (7.8-10.44) 10/01/19 21:14 Total Bilirubin 0.7 mg/dL (0.2-1.2) 10/01/19 21:14 AST 20 U/L (5-34) 10/01/19 21:14 ALT 11 U/L (8-55) 10/01/19 21:14 Alkaline Phosphatase 116 U/L (40-110) H 10/01/19 21:14 Troponin I 0.011 ng/mL (< 0.028) 10/01/19 21:14 B-Natriuretic Peptide 1169.4 pg/mL (0-100) H 10/01/19 21:14 Serum Total Protein 6.8 g/dL (6.0-8.3) 10/01/19 21:14 Albumin 3.5 g/dL (3.4-4.8) 10/01/19 21:14 - Radiology Interpretation Chest x-ray Status: report reviewed by nm Hospitalist H&P A/P - Problem (1) Atrial fibrillation with RVR Code(s): I48.91 - UNSPECIFIED ATRIAL FIBRILLATION Status: Acute (2) New onset of congestive heart failure Code(s): I50.9 - HEART FAILURE, UNSPECIFIED Status: Acute (3) SOB (shortness of breath) on exertion Code(s): R06.02 - SHORTNESS OF BREATH Status: Acute (4) Bilateral lower extremity edema Code(s): R60.0 - LOCALIZED EDEMA Status: Acute (5) History of changes in urinary output Code(s): Z87.448 - PERSONAL HISTORY OF OTHER DISEASES OF URINARY SYSTEM Status : Acute (6) Chronic obstructive pulmonary disease (COPD) Status: Chronic (7) Myasthenia gravis with exacerbation Code(s): G70.01 - MYASTHENIA GRAVIS WITH (ACUTE) EXACERBATION Status: Chronic - Plan Plan: Cardiac monitoring. Patient being assisted to use the bathroom, I have requested a post void bladder scan to assess for residual volume/retention given complaints of decreased urine output x 2 days. UA/Ucx ordered as well. HR currently improved to 80s, BP in 120s systolic. Continue to monitor HR and BP, she is currently on cardizem 5 mg/hr. Given tachycardia, lower leg swelling, and shortness of breath, and recently more sedentary will obtain d-dimer. If elevated will plan to order CTA to rule out PE. GFR in 80s. Creat normal. Will continue Lasix 20 mg IV BID. Echo ordered. Consult placed for HF management. Walking program consulted. Will reconcile home medications once verified. CODE STATUS FULL Surrogate decision maker is her daughter Laurie Acosta. ADDENDUM: D-dimer elevated. Per discussion with Dr. Juan, CTA ordered. Patient started on Lovenox given possibility of atrial clots and undergoing work -up for PE. Baseline weight 1 week ago was 118 lbs, per patient. Lovenox 50 mg SQ x1 and BID ordered. Notified by RN, patient arrived from ED with cardizem at 7.5 mg/hr, HR is 108, Systolic BP 115. We will leave as is and continue to monitor. Order adjusted. Patient going for CTA shortly.
[2019-10-02 01:18] LABS: Bacteria/HPF None Seen HPF (None Seen); Bilirubin Negative (Negative); Blood, Urine Negative (Negative); Clarity Clear (Clear); Glucose, Urine (Dipstick) Normal (Negative); Leukocyte Negative Leu/uL (Negative); Nitrite Negative (Negative); Protein, Urine (Dipstick) Negative (Neg-Trace); RBC/HPF 0-3 HPF (0-3); Squamous Epithelial 0-3 HPF (0-3); Urobilinogen Normal mg/dL (Less than 2); WBC/HPF 0-3 HPF (0-3)
[2019-10-02 01:25] LABS: Urine Culture Reflex No No
[2019-10-02] MEDS ORDERED: Enoxaparin Sodium 60 MG/0.6 ML SYRINGE SC SCH (01:30)
[2019-10-02 01:39] LABS: PTT 35.2 SEC (22.9-36.1)
[2019-10-02 04:39] LABS: #Basophils 0.1 thou/uL (0.0-0.2); #Eosinphils 0.2 thou/uL (0.0-0.7); #Lymphocytes 2.1 thou/uL (1.20-3.40); #Monocytes 0.9 thou/uL (0.11-0.59); #Neutrophils 4.9 thou/uL (1.40-6.50); %Basophils 0.9 % (0.0-1.0); %Eosinophils 2.1 % (0.0-10.0); %Lymphocytes 25.7 % (21.0-51.0); %Monocytes 11.2 % (0.0-10.0); %Neutrophils 60.1 % (42.0-75.0); Hemoglobin 13.5 g/dL (12.0-16.0); Mean Corpuscular HGB CONC 31.2 g/dL (32.0-36.0); Mean Corpuscular Hemoglobin 29.4 pg (27.0-31.0); Mean Corpuscular Volume 94.1 fL (78.0-98.0); Mean Platelet Volume 7.8 fL (7.4-10.4); Platelet Count 289 thou/uL (130-400); RBC Distribution Width 13.6 % (11.5-14.5); Red Blood Cell (RBC) Count 4.58 mill/uL (4.20-5.40); White Blood Cell (WBC) Count 8.2 thou/uL (4.8-10.8)
[2019-10-02 05:03] LABS: ALT (SGPT) 8 U/L (8-55); AST (SGOT) 17 U/L (5-34); Albumin 3.2 g/dL (3.4-4.8); Alkaline Phosphatase 104 U/L (40-110); Anion Gap 11 mmol/L (10-20); BUN (Urea Nitrogen) 5 mg/dL (9.8-20.1); Bilirubin, Total 0.6 mg/dL (0.2-1.2); Calc. Creatinine Clearance 75 mL/min (70-130); Calcium 8.2 mg/dL (7.8-10.44); Carbon Dioxide 30 mmol/L (23-31); Chloride 98 mmol/L (98-107); Estimated GFR-MDRD 85; Glucose 96 mg/dL (80-115); Potassium 3.3 mmol/L (3.5-5.1); Protein, Total 6.2 g/dL (6.0-8.3); Sodium 136 mmol/L (136-145)
[2019-10-02] MEDS ORDERED: Magnesium Sulfate 4 GM in Sodium Chloride 0.9% 250 ML 250 ML IVPB SCH (06:00)
[2019-10-02] MEDS: Furosemide 20 MG/2 ML VIAL SLOW IVP SCH ×2 (06:18→14:00)
[2019-10-02] MEDS: Mometasone 200 MCG/Formoterol 5 MCG 120 PUFF INHALER INH SCH (07:05)
--- NOTE | 2019-10-02 07:18 | CT ---
PRELIMINARY REPORT/[facility]/EMERGENCY AFTER HOURS PROCEDURE EXAM: CTA Chest with Intravenous Contrast CLINICAL HISTORY: Chest pain, tachycardia. TECHNIQUE: Axial CTA images of the chest with intravenous contrast. MIP reconstructed images were created and re viewed. CONTRAST: With; ISOVUE 370,100mL COMPARISON: None provided. FINDINGS: PULMONARY ARTERIES There is no intraluminal filling defect suspicious for PE. Enlarged main pulmonary artery measuring up to 3.3 cm in diameter. AORTA Enlarged ascending aorta measuring up to 3.6 cm in short axis. Mild atherosclerosis. LUNGS Several scattered nodules of the lungs measuring up to 8 mm. Centrilobular emphysematous changes. B ibasilar subsegmental airspace densities. No pulmonary mass. PLEURAL SPACES Small bilateral pleural effusions. No pneumothorax. HEART AND MEDIASTINUM Moderate cardiomegaly. cardiomegaly. No significant pericardial effusion. LYMPH NODES Enlarged paratracheal and subcarinal lymph nodes measuring up to 1.5 cm in short axis. BONES No focal osseous abnormality or acute fracture. CHEST WALL AND UPPER ABDOMEN Images through the upper abdomen are unremarkable. The chest wall is unremarkable. IMPRESSION: No identified acute chest abnormality. Moderate cardiomegaly. Enlarged main pulmonary artery suggestive of pulmonary artery hypertension. Centrilobular emphysematous changes. Scattered nodules of the lungs measuring up to [address] in 6 -12 months is recommended per Fleischner criteria. Small bilateral pleural effusions. Nonspecific mediastinal lymphadenopathy. Ectasia of the ascending aorta. ELECTRONICALLY SIGNED BY: Ludwin Wyman MD October 02, 2019 2:39:31 AM CDT This report is intended for review by the ordering physician only, in accordance of law. If you rece jessica this report in error, please call [facility] at [phone]. FINAL REPORT Exam: CT angiogram of the chest HISTORY: Tachycardia. Shortness of breath. Evaluate for pulmonary artery embolism. COMPARISON: None TECHNIQUE: CT angiogram of the chest is performed in the axial plane. Three-dimensional reformatted i mages are submitted for interpretation FINDINGS: Mediastinum: Enlarged precarinal lymph node measuring 1.4 x 2.0 cm. Mild right hilar fullness. HEART: Normal size. No significant pericardial fluid. Aorta: Imaging evaluation due to lack of adequate contrast opacification. No evidence of aneurysm. Upper solid abdominal viscera: No abnormality enhancement. Trachea and central bronchi: Patent Pleural spaces: Small left and moderate right pleural effusion Lung parenchyma: Consolidation in both lower lobes may represent atelectasis, pneumonia or aspiration . There are multiple solid nodules in the right lung. Right apical solid nodule measures 0.7 x 0.9 cm, solid nodule in the posterior right upper lobe measures 0.6 x 0.4 cm, solid nodule in the lower l obe measures 0.5 x 0.4 cm. Pneumothorax: None Osseous structures: No lytic or blastic lesions Pulmonary arteries: Adequate contrast opacification pulmonary arterial system to the level of segment al arteries. No filling defect to suggest pulmonary embolism IMPRESSION: 1. This report is in agreement with initial report by [facility]. 2. No evidence of pulmonary artery embolism to the level of the segmental arteries. 3. Multiple lung parenchymal nodules. Follow-up CT in 6-12 months is recommended. 4. Bibasilar consolidation. Correlate for aspiration, atelectasis or pneumonia. Code LN Transcribed Date/Time: 10/02/2019 7:27 AM
[2019-10-02 07:19] LABS: Phosphorus 4.1 mg/dL (2.3-4.7)
[2019-10-02] MEDS ORDERED: Famotidine/PF 20 mg/2ml Vial SLOW IVP SCH (09:00)
[2019-10-02] MEDS: Enoxaparin Sodium 60 MG/0.6 ML SYRINGE SC SCH ×2 (09:32→20:42)
[2019-10-02] MEDS: Fluticasone Propionate Nasal Spray 16 gm Bottle NASAL SCH (09:33)
[2019-10-02] MEDS: Mycophenolate 250 MG CAP PO SCH (09:34)
[2019-10-02] MEDS: Acetaminophen 325 MG TAB PO PRN (09:42)
[2019-10-02] MEDS ORDERED: Iopamidol-370 76% 500 ML 1 ML ONE (09:52)
[2019-10-02] MEDS: traMADol HCl 50 MG TAB PO PRN ×2 (10:54→14:54)
--- NOTE | 2019-10-02 10:55 | PDOC.HOSPP ---
- Subjective Encounter Date: 10/02/19 Encounter Time: 09:30 Subjective: Patient seen and examined for CHF/Afib with RVR. SOB and LE edema improving. No CP. No other complaints. No overnight events - Objective Vital Signs & Weight: Vital Signs (12 hours) Temp Pulse Resp BP Pulse Ox 10/02/19 07:52 98.0 F 104 H 18 115/60 93 L 10/02/19 03:51 107 H 16 105/63 95 10/02/19 00:41 97 10/02/19 00:25 97.8 F 137 H 24 H 119/78 Weight Weight 131 lb 4.8 oz I&O: 10/01/19 10/02/19 10/03/19 06:59 06:59 06:59 Intake Total 120 Output Total 1700 Balance -1580 Result Diagrams: 10/02/19 03:54 10/02/19 03:54 Additional Labs: Laboratory Tests 10/01/19 10/01/19 10/02/19 21:14 21:14 03:54 Sodium 132 L Potassium 3.3 L Magnesium 1.6 B-Natriuretic Peptide 1169.4 H Radiology Reviewed by me: Yes (CT chest - no PE, B/L Pleural effusion/COPD) EKG Reviewed by me: Yes (Tele Afib) Hospitalist ROS - Review of Systems Respiratory: reports: SOB with excertion. denies: cough, dry, shortness of breath, hemoptysis, pleuritic pain, sputum, wheezing, other Cardiovascular: reports: edema. denies: chest pain, palpitations, orthopnea, paroxysmal noc. dyspnea, light headedness, other Gastrointestinal: denies: nausea, vomiting, abdominal pain, diarrhea, constipation, melena, hematochezia, other - Medication Medications: Active Medications Generic Name Dose Route Start Last Admin Trade Name Freq PRN Reason Stop Dose Admin Acetaminophen 650 mg 10/02/19 00:34 10/02/19 09:42 Tylenol PO 650 mg Q4H PRN Administration Headache/Fever/Mild Pain (1-3) Enoxaparin Sodium 50 mg 10/02/19 09:00 10/02/19 09:32 Lovenox SC 50 mg 0900,2100 TIFF Administration Famotidine 20 mg 10/02/19 09:00 10/02/19 09:33 Pepcid SLOW IVP 20 mg Q12HR TIFF Administration Fluticasone Propionate 0 gm 10/02/19 09:00 10/02/19 09:33 Flonase Nasal [place] NASAL 2 spr DAILY TIFF Administration Furosemide 20 mg 10/02/19 06:00 10/02/19 06:18 Lasix SLOW IVP 20 mg 0600,1400 TIFF Administration Mometasone Furoate/Formoterol Fumar 1 puff 10/02/19 07:00 10/02/19 07:05 Dulera 200 Mcg/5 Mcg Inhaler INH 1 puff DAILY-RT TIFF Administration Mycophenolate Mofetil 1,500 mg 10/02/19 09:00 10/02/19 09:34 Cellcept PO 1,500 mg DAILY TIFF Administration - Exam General Appearance: NAD Neck: supple, symmetric, no lymphadenopathy, no carotid bruit Heart: no gallops, no rubs, normal peripheral pulses, irregular Respiratory: no wheezes, normal chest expansion, rales, rhonchi Respiratory - other findings: dec AE at bases Gastrointestinal: soft, non-tender, non-distended, normal bowel sounds Extremities: no cyanosis, no clubbing, 2+ LE edema Extremities - other findings: no erythema Neurological: no new deficit Psychiatric: normal affect, A&O x 3 Hosp A/P - Plan DVT proph w/lovenox, DVT proph w/SCDs Atrial fibrillation with RVR Gen weakness New onset of congestive heart failure Hypokalemia/Hypomagnesemia Chronic obstructive pulmonary disease (COPD) Myasthenia gravis B/L Pleural effusion Anxiety Nonspecific mediastinal lymphadenopathy Plan: Cardio consult Cont Cardizem drip with anticoagulation - Pt understands the risk associated with anticoagulation Cont IV Lasix Replace electrolytes Await Echo CTA - no PE PT/OT Consult Palliative care for support Daily labs
[2019-10-02] MEDS: Potassium Chloride 20 MEQ TAB PO SCH ×2 (11:16→16:23)
--- NOTE | 2019-10-02 14:18 | CON ---
DATE OF CONSULTATION: REASON FOR CONSULTATION: Atrial fibrillation. HISTORY OF PRESENT ILLNESS: Ms. Carnes is a 64-year-old woman who has not been seen by Cardiology in the past. She has multiple medical problems as described below. States she has developed shortness of breath as well as lower extremity edema. She also suffers from palpitations. Currently, she states she is feeling better. Her rate has been controlled on IV Cardizem. She is also diuresed. PAST MEDICAL HISTORY: COPD, previous tobacco abuse, myasthenia gravis, depression, Reagan disease, aspiration pneumonia, appendectomy, hysterectomy. ALLERGIES: PENICILLIN, SULFA, TETRACYCLINE. HOME MEDICATIONS: Include mycophenolate, Flonase, Symbicort. FAMILY HISTORY: Negative for CAD. SOCIAL HISTORY: Previous tobacco abuse. REVIEW OF SYSTEMS: A 10-point review of systems is reviewed as above, otherwise negative. PHYSICAL EXAMINATION: GENERAL: Patient is a pleasant woman who is in no acute distress. The patient appears her stated age. VITAL SIGNS: Blood pressure 108/68, pulse 70, temperature afebrile. NEUROLOGIC: The patient is alert and oriented x3 with no focal neurologic deficits. HEENT: Sclerae without icterus. Mouth has moist mucous membranes with normal pallor. NECK: No JVD. Carotid upstroke brisk. No bruits bilaterally. LUNGS: Clear to auscultation with unlabored respirations. BACK: No scoliosis or kyphosis. CARDIAC: Regular rate and rhythm with normal S1 and S2. No S3 or S4 noted. No significant rubs, murmurs, thrills, or gallops noted throughout the precordium. PMI is not displaced. There is no parasternal heave. ABDOMEN: Soft, nontender, nondistended. No peritoneal signs present. No hepatosplenomegaly. No abnormal striae. EXTREMITIES: 2+ femoral and 2+ dorsalis pedis pulses. No cyanosis, clubbing, or edema. SKIN: No gross abnormalities. PERTINENT LABORATORY DATA: Hemoglobin 13.5, hematocrit 43.1, platelet count 289. Creatinine 0.69, albumin 3.2. Troponin negative. IMPRESSION: New onset atrial fibrillation. RECOMMENDATIONS: 1. Add p.o. Cardizem to supplement IV Cardizem. 2. Decrease IV Cardizem as heart rate decreases. 3. Recommend changing p.o. Cardizem from short-acting to long-acting close to discharge. 4. Load on digoxin at 0.75 mg over 16 hours. 5. Review echo and on Zocor. Job ID: [id number]
[2019-10-02] MEDS: Digoxin 0.25 MG TAB PO SCH ×2 (14:52→22:15)
--- NOTE | 2019-10-02 16:07 | PDOC.PALFU ---
Palliative Care Follow-up Note Introduced Palliative Care, consult for family support. Dorene Vu RNmanager flight also present. We will continue to follow and offer support through emotional support and therapeutic listening. Please also refer to Palliative Care notes in note section.
[2019-10-02] MEDS: Acetaminophen/Codeine 30-300mg Tablet PO PRN (16:23)
[2019-10-02] MEDS: Famotidine 20 MG TAB PO SCH (20:43)
[2019-10-03 04:49] LABS: ALT (SGPT) 8 U/L (8-55); AST (SGOT) 14 U/L (5-34); Alkaline Phosphatase 92 U/L (40-110); Anion Gap 13 mmol/L (10-20); BUN (Urea Nitrogen) 4 mg/dL (9.8-20.1); Bilirubin, Total 0.5 mg/dL (0.2-1.2); Calc. Creatinine Clearance 78 mL/min (70-130); Calcium 7.7 mg/dL (7.8-10.44); Carbon Dioxide 26 mmol/L (23-31); Chloride 100 mmol/L (98-107); Estimated GFR-MDRD 88; Globulin 2.8 g/dL (2.4-3.5); Glucose 102 mg/dL (80-115); Potassium 4.1 mmol/L (3.5-5.1); Protein, Total 5.8 g/dL (6.0-8.3); Sodium 135 mmol/L (136-145)
[2019-10-03 05:10] LABS: #Basophils 0.1 thou/uL (0.0-0.2); #Eosinphils 0.3 thou/uL (0.0-0.7); #Lymphocytes 2.3 thou/uL (1.20-3.40); #Monocytes 0.7 thou/uL (0.11-0.59); #Neutrophils 3.4 thou/uL (1.40-6.50); %Basophils 1.8 % (0.0-1.0); %Eosinophils 4.1 % (0.0-10.0); %Lymphocytes 33.7 % (21.0-51.0); %Monocytes 10.3 % (0.0-10.0); %Neutrophils 50.1 % (42.0-75.0); Mean Corpuscular HGB CONC 30.5 g/dL (32.0-36.0); Mean Corpuscular Hemoglobin 29.1 pg (27.0-31.0); Mean Corpuscular Volume 95.2 fL (78.0-98.0); Mean Platelet Volume 7.8 fL (7.4-10.4); Platelet Count 272 thou/uL (130-400); RBC Distribution Width 13.8 % (11.5-14.5); Red Blood Cell (RBC) Count 4.46 mill/uL (4.20-5.40); White Blood Cell (WBC) Count 6.7 thou/uL (4.8-10.8)
[2019-10-03] MEDS: Digoxin 0.25 MG TAB PO SCH (06:02)
[2019-10-03] MEDS: Furosemide 20 MG/2 ML VIAL SLOW IVP SCH ×2 (06:02→14:25)
[2019-10-03] MEDS: Mometasone 200 MCG/Formoterol 5 MCG 120 PUFF INHALER INH SCH (06:50)
[2019-10-03] MEDS: Potassium Chloride 20 MEQ TAB PO SCH ×2 (08:43→17:05)
[2019-10-03] MEDS: Enoxaparin Sodium 60 MG/0.6 ML SYRINGE SC SCH ×2 (08:43→20:27)
[2019-10-03] MEDS: Famotidine 20 MG TAB PO SCH ×2 (08:44→20:26)
[2019-10-03] MEDS: Fluticasone Propionate Nasal Spray 16 gm Bottle NASAL SCH (08:44)
[2019-10-03] MEDS: Mycophenolate 250 MG CAP PO SCH (08:44)
[2019-10-03] MEDS: Acetaminophen/Codeine 30-300mg Tablet PO PRN ×2 (11:16→20:26)
--- NOTE | 2019-10-03 13:46 | PDOC.CPN ---
- Subjective Date: 10/03/19 Time: 12:00 Interval history: No complaints other than neck pain from recent Fall. Awaiting CT. AF remains rate-controlled. - Review of Systems General: denies: fever/chills, weight/appetite/sleep changes, night sweats, fatigue Respiratory: denies: cough, congestion, shortness of breath, exercise intolerance Cardiovascular: denies: chest pain, palpitation, edema, paroxysmal nocturnal dyspnea, orthopnea Gastrointestinal: denies: nausea, vomiting, diarrhea, constipation, abd pain, GI bleeding Musculoskeletal: reports: pain, tenderness, stiffness Neurological: denies: numbness, syncope, seizure, weakness - Objective Allergies/Adverse Reactions: Allergies Allergy/AdvReac Type Severity Reaction Status Date / Time Penicillins Allergy Severe Anaphylaxis Verified 10/02/19 00:33 Sulfa (Sulfonamide Allergy Severe Hives Verified 10/02/19 00:33 Antibiotics) tetracycline Allergy Verified 10/02/19 00:33 mycins Allergy Uncoded 10/02/19 00:33 Visit Medications: Current Medications Acetaminophen (Tylenol) 650 mg PO Q4H PRN PRN Reason: Headache/Fever/Mild Pain (1-3) Last Admin: 10/02/19 09:42 Dose: 650 mg Acetaminophen (Tylenol) 650 mg PA Q4H PRN PRN Reason: Headache/Fever/Mild Pain (1-3) Acetaminophen/Codeine Phosphate (Tylenol #3) 1 tab PO Q4H PRN PRN Reason: Moderate Pain (4-6) Last Admin: 10/03/19 11:16 Dose: 1 tab Albuterol/Ipratropium (Duoneb) 3 ml NEB [id number] PRN PRN Reason: SOB &/or Wheezing Diltiazem HCl (Cardizem) 60 mg PO Q8HR [facility] Last Admin: 10/03/19 06:02 Dose: 60 mg Enoxaparin Sodium (Lovenox) 50 mg SC 0900,2100 [facility] Last Admin: 10/03/19 08:43 Dose: 50 mg Famotidine (Pepcid) 20 mg PO BID [facility] Last Admin: 10/03/19 08:44 Dose: 20 mg Fluticasone Propionate (Flonase Nasal [place]) 0 gm NASAL DAILY [facility] Last Admin: 10/03/19 08:44 Dose: 2 spr Furosemide (Lasix) 20 mg SLOW IVP 0600,1400 [facility] Last Admin: 10/03/19 06:02 Dose: 20 mg Mometasone Furoate/Formoterol Fumar (Dulera 200 Mcg/5 Mcg Inhaler) 1 puff INH DAILY-RT [facility] Last Admin: 10/03/19 06:50 Dose: 1 puff Mycophenolate Mofetil (Cellcept) 1,500 mg PO DAILY [facility] Last Admin: 10/03/19 08:44 Dose: 1,500 mg Potassium Chloride (K-Dur) 20 meq PO BID-WM [facility] Sodium Chloride (Flush - Normal Saline) 10 ml IVF Q12HR PRN PRN Reason: Saline Flush Sodium Chloride (Flush - Normal Saline) 10 ml IVF PRN PRN PRN Reason: Saline Flush Tramadol HCl (Ultram) 50 mg PO Q4H PRN PRN Reason: Mild Pain (1-3) Last Admin: 10/02/19 14:54 Dose: 50 mg Vital Signs & Weight: Vital Signs Temp Pulse Pulse Pulse Resp BP BP 10/03/19 11:18 97.9 F 82 16 10/03/19 09:43 81 92 122/78 113/75 10/03/19 07:45 98.3 F 74 16 10/03/19 06:02 80 10/03/19 03:49 10/03/19 03:09 98.6 F 78 18 BP Pulse Ox 10/03/19 11:18 110/68 96 10/03/19 09:43 10/03/19 07:45 110/55 L 95 10/03/19 06:02 10/03/19 03:49 94 L 10/03/19 03:09 101/56 L 91 L Weight 125 lb 8 oz - Physical Exam General: alert & oriented x3, appears well HEENT: mucus membranes moist Neck: supple neck Cardiac: other (IRR IRR) Lungs: clear to auscultation Neuro: grossly intact Abdomen: soft Extremities: no edema Skin: clear Musculoskeletal: decreased range of motion, other (Pain to neck with decreased ROM) - Labs Result Diagrams: 10/03/19 03:55 10/03/19 03:55 Troponin/CKMB Troponin I Less than 0.010 ng/mL (< 0.028) 10/02/19 03:54 - Assessment/Plan Assessment/Plan: 1. New-onset AF 2. Hx orthostatic hypotension 3. Hx MG 4. [place]'s Disease Decrease IV Cardizem. Transition to po. If remains rate-controlled can be discharged tomorrow. CHADsVASc of 2. Will need ACT. RG-Pt seen and examined; agree with the above assessment Doing much better today Change to PO ACT when scan of neck is done and no intervention is confirmed Rate appears stable Home soon
--- NOTE | 2019-10-03 14:11 | PDOC.HOSPP ---
- Subjective Encounter Date: 10/03/19 Encounter Time: 11:00 Subjective: Patient seen and examined for CHF with Afib with RVR. SOB improving. Neck pain worsening over the last 24 hr. Reports h/o falls. No other complaints. No overnight events - Objective Vital Signs & Weight: Vital Signs (12 hours) Temp Pulse Pulse Pulse Resp BP BP 10/03/19 11:18 97.9 F 82 16 10/03/19 09:43 81 92 122/78 113/75 10/03/19 07:45 98.3 F 74 16 10/03/19 06:02 80 10/03/19 03:49 10/03/19 03:09 98.6 F 78 18 BP Pulse Ox 10/03/19 11:18 110/68 96 10/03/19 09:43 10/03/19 07:45 110/55 L 95 10/03/19 06:02 10/03/19 03:49 94 L 10/03/19 03:09 101/56 L 91 L Weight Weight 125 lb 8 oz I&O: 10/02/19 10/03/19 10/04/19 06:59 06:59 06:59 Intake Total 120 1620 Output Total 1700 2400 Balance -1580 -780 Result Diagrams: 10/03/19 03:55 10/03/19 03:55 EKG Reviewed by me: Yes (Tele Afib) Hospitalist ROS - Review of Systems Respiratory: denies: cough, dry, shortness of breath, hemoptysis, SOB with excertion, pleuritic pain, sputum, wheezing, other Cardiovascular: denies: chest pain, palpitations, orthopnea, paroxysmal noc. dyspnea, edema, light headedness, other Gastrointestinal: denies: nausea, vomiting, abdominal pain, diarrhea, constipation, melena, hematochezia, other - Medication Medications: Active Medications Generic Name Dose Route Start Last Admin Trade Name Freq PRN Reason Stop Dose Admin Acetaminophen 650 mg 10/02/19 00:34 10/02/19 09:42 Tylenol PO 650 mg Q4H PRN Administration Headache/Fever/Mild Pain (1-3) Acetaminophen/Codeine Phosphate 1 tab 10/02/19 10:23 10/03/19 11:16 Tylenol #3 PO 1 tab Q4H PRN Administration Moderate Pain (4-6) Diltiazem HCl 60 mg 05/22/20 14:00 10/03/19 06:02 Cardizem PO 60 mg Q8HR TIFF Administration Enoxaparin Sodium 50 mg 10/02/19 09:00 10/03/19 08:43 Lovenox SC 50 mg 0900,2100 TIFF Administration Famotidine 20 mg 10/02/19 21:00 10/03/19 08:44 Pepcid PO 20 mg BID TIFF Administration Fluticasone Propionate 0 gm 10/02/19 09:00 10/03/19 08:44 Flonase Nasal Lynch NASAL 2 spr DAILY TIFF Administration Furosemide 20 mg 10/02/19 06:00 10/03/19 06:02 Lasix SLOW IVP 20 mg 0600,1400 TIFF Administration Mometasone Furoate/Formoterol Fumar 1 puff 10/02/19 07:00 10/03/19 06:50 Dulera 200 Mcg/5 Mcg Inhaler INH 1 puff DAILY-RT TIFF Administration Mycophenolate Mofetil 1,500 mg 10/02/19 09:00 10/03/19 08:44 Cellcept PO 1,500 mg DAILY TIFF Administration Tramadol HCl 50 mg 10/02/19 10:23 10/02/19 14:54 Ultram PO 50 mg Q4H PRN Administration Mild Pain (1-3) - Exam General Appearance: NAD Heart: no gallops, no rubs, irregular Respiratory: no rales, no ronchi Gastrointestinal: soft, non-distended Neurological: no new deficit Psychiatric: normal affect, A&O x 3 Hosp A/P - Plan DVT proph w/lovenox Atrial fibrillation with RVR Gen weakness New onset of systolic/diastolic CHF Hypokalemia/Hypomagnesemia Worsening neck pain with h/o falls COPD Myasthenia gravis B/L Pleural effusion Anxiety Nonspecific mediastinal lymphadenopathy/Lung nodule Lung nodules Plan: Cardio input appreciated Cont Cardizem drip weaning Cont PO Cardizem Cont anticoagulation Change IV Lasix to PO Reduce Potassium dose Echo reviewed CT neck to r/o fractures AM labs Cardio input appreciated
--- NOTE | 2019-10-03 16:41 | CT ---
CT CERVICAL SPINE WITHOUT CONTRAST: 10/03/19 HISTORY: Fall. Pain. The skull base is intact. The occipital condyles are intact. The odontoid process is intact. There is no acute fracture or malalignment of the cervical spine. No acute traumatic facet joint widening. Hi gh grade facet arthrosis on the left at C3-C6. Extensive scar in the lung apices. The spinous processes are intact. IMPRESSION: No acute fracture or malalignment of the cervical spine. POS: HOME
[2019-10-03] MEDS ORDERED: Cyclobenzaprine 10 MG TAB PO PRN (17:18)
[2019-10-03] MEDS ORDERED: Apixaban 5 MG TAB PO SCH (21:00)
[2019-10-04 04:57] LABS: Anion Gap 10 mmol/L (10-20); BUN (Urea Nitrogen) 6 mg/dL (9.8-20.1); Calc. Creatinine Clearance 75 mL/min (70-130); Carbon Dioxide 29 mmol/L (23-31); Chloride 102 mmol/L (98-107); Estimated GFR-MDRD 88; Glucose 92 mg/dL (80-115); Magnesium 1.9 mg/dL (1.6-2.6); Potassium 4.5 mmol/L (3.5-5.1); Sodium 136 mmol/L (136-145)
[2019-10-04] MEDS: Mometasone 200 MCG/Formoterol 5 MCG 120 PUFF INHALER INH SCH (07:40)
[2019-10-04] MEDS: Famotidine 20 MG TAB PO SCH (07:46)
[2019-10-04] MEDS: Mycophenolate 250 MG CAP PO SCH (07:46)
[2019-10-04] MEDS: Potassium Chloride 20 MEQ TAB PO SCH (07:46)
[2019-10-04] MEDS: Enoxaparin Sodium 60 MG/0.6 ML SYRINGE SC SCH (07:47)
[2019-10-04] MEDS: Fluticasone Propionate Nasal Spray 16 gm Bottle NASAL SCH (07:51)
[2019-10-04] MEDS: Acetaminophen/Codeine 30-300mg Tablet PO PRN (07:53)
[2019-10-04] MEDS ORDERED: Furosemide 20 MG TAB PO SCH (09:00)
[2019-10-04 09:38] VITALS: TEMP 97.4
--- NOTE | 2019-10-04 10:46 | PDOC.CPN ---
- Subjective Date: 10/04/19 Time: 10:44 Interval history: c/o severe dental pain, but patient says that's normal for her. CT spine negative. AF remains rate-controlled. - Review of Systems General: denies: fever/chills, weight/appetite/sleep changes, night sweats, fatigue Respiratory: denies: cough, congestion, shortness of breath, exercise intolerance Cardiovascular: denies: chest pain, palpitation, edema, paroxysmal nocturnal dyspnea, orthopnea Gastrointestinal: denies: nausea, vomiting, diarrhea, constipation, abd pain, GI bleeding Musculoskeletal: reports: pain, stiffness Neurological: denies: numbness, syncope, seizure, weakness - Objective Allergies/Adverse Reactions: Allergies Allergy/AdvReac Type Severity Reaction Status Date / Time Penicillins Allergy Severe Anaphylaxis Verified 10/02/19 00:33 Sulfa (Sulfonamide Allergy Severe Hives Verified 10/02/19 00:33 Antibiotics) tetracycline Allergy Verified 10/02/19 00:33 mycins Allergy Uncoded 10/02/19 00:33 Visit Medications: Current Medications Acetaminophen (Tylenol) 650 mg PO Q4H PRN PRN Reason: Headache/Fever/Mild Pain (1-3) Last Admin: 10/02/19 09:42 Dose: 650 mg Acetaminophen (Tylenol) 650 mg PA Q4H PRN PRN Reason: Headache/Fever/Mild Pain (1-3) Acetaminophen/Codeine Phosphate (Tylenol #3) 1 tab PO Q4H PRN PRN Reason: Moderate Pain (4-6) Last Admin: 10/04/19 07:53 Dose: 1 tab Albuterol/Ipratropium (Duoneb) 3 ml NEB [id number] PRN PRN Reason: SOB &/or Wheezing Cyclobenzaprine HCl (Flexeril) 5 mg PO TID PRN PRN Reason: Muscle Spasm Stop: 10/05/19 17:19 Diltiazem HCl (Cardizem) 60 mg PO Q8HR [facility] Last Admin: 10/04/19 05:22 Dose: 60 mg Enoxaparin Sodium (Lovenox) 50 mg SC 0900,2100 [facility] Last Admin: 10/04/19 07:47 Dose: 50 mg Famotidine (Pepcid) 20 mg PO BID [facility] Last Admin: 10/04/19 07:46 Dose: 20 mg Fluticasone Propionate (Flonase Nasal Rufe) 0 gm NASAL DAILY [facility] Last Admin: 10/04/19 07:51 Dose: 2 spr Furosemide (Lasix) 20 mg PO 0900,1400 [facility] Last Admin: 10/04/19 07:46 Dose: 20 mg Mometasone Furoate/Formoterol Fumar (Dulera 200 Mcg/5 Mcg Inhaler) 1 puff INH DAILY-RT [facility] Last Admin: 10/04/19 07:40 Dose: 1 puff Mycophenolate Mofetil (Cellcept) 1,500 mg PO DAILY [facility] Last Admin: 10/04/19 07:46 Dose: 1,500 mg Potassium Chloride (K-Dur) 20 meq PO BID-WM [facility] Last Admin: 10/04/19 07:46 Dose: 20 meq Sodium Chloride (Flush - Normal Saline) 10 ml IVF Q12HR PRN PRN Reason: Saline Flush Sodium Chloride (Flush - Normal Saline) 10 ml IVF PRN PRN PRN Reason: Saline Flush Tramadol HCl (Ultram) 50 mg PO Q4H PRN PRN Reason: Mild Pain (1-3) Last Admin: 10/02/19 14:54 Dose: 50 mg Vital Signs & Weight: Vital Signs Temp Pulse Resp BP BP BP BP 10/04/19 08:00 97.4 F L 81 16 118/76 123/84 124/73 10/04/19 03:46 98.9 F 79 20 138/78 Pulse Ox 10/04/19 08:00 94 L 10/04/19 03:46 90 L Weight 126 lb 8 oz - Physical Exam General: alert & oriented x3, appears well Neck: supple neck Cardiac: other (IRR IRR) Lungs: clear to auscultation, no wheeze, rales, rhonchi Neuro: grossly intact Abdomen: unremarkable, soft Extremities: no edema Skin: clear - Labs Result Diagrams: 10/03/19 03:55 10/04/19 04:20 Troponin/CKMB Troponin I Less than 0.010 ng/mL (< 0.028) 10/02/19 03:54 - Assessment/Plan Assessment/Plan: 1. New-onset AF 2. Moderate-severe MR 3. Mild decrease in EF 45-50% 4. Hx orthostatic hypotension 5. Hx MG 6. Turner's Disease AF controlled. If no further intervention to neck planned, would discharge patient on Eliquis 5mg BID, diltiazem CD 240mg once daily. Mild decrease in EF probably due to RVR. Good output. Will stop lasix.
[2019-10-04] MEDS ORDERED: Benzocaine (Dental) 20% 10 gm Tube TOP PRN (11:48)
[2019-10-04 12:07] VITALS: BP 120/81
[2019-10-04] MEDS: Acetaminophen 325 MG TAB PO PRN (12:33)
--- NOTE | 2019-10-05 02:23 | DIS ---
DATE OF ADMISSION: 10/01/2019 DATE OF DISCHARGE: 10/04/2019 DISCHARGE DIAGNOSES: 1. Atrial fibrillation with rapid ventricular response that is now controlled. 2. History of myasthenia gravis. 3. History of Turner's disease. 4. History of orthostatic hypotension. 5. Mild congestive heart failure with ejection fraction of 45% to 50%. 6. [id number] mitral regurgitation. DISCHARGE MEDICATIONS: 1. Eliquis 5 mg orally twice daily. 2. Diltiazem extended release 240 mg orally daily. 3. Symbicort 160/4.5 mg one puff inhaled daily. 4. Flonase 2 sprays nasally daily. 5. CellCept 1500 mg orally daily. 6. Furosemide 20 mg orally daily. HISTORY OF PRESENT ILLNESS AND HOSPITAL COURSE: The patient is a 64-year-old female with past medical history of COPD, myasthenia gravis, depression, [place]'s disease, and tobacco abuse, who presented to the hospital with complaints of shortness of breath and lower extremity edema. She was found to be in atrial fibrillation with rapid ventricular response. The patient was admitted to the hospital and was managed with IV diuresis to achieve negative fluid balance, which led to improvement in her symptoms. Atrial fibrillation was managed with rate control with Cardizem. Echocardiogram did not reveal any intracardiac thrombi and revealed preserved EF of 45% to 50% with [id number] mitral regurgitation. The patient was started on Eliquis for primary prophylaxis against embolic CVA due to elevated MEHRDAD-VASc score. At the time of discharge, the patient is clinically stable. She has been instructed to follow with Cardiology in 1 to 2 weeks. Job ID: [id number]
--- NOTE | 2019-10-06 10:47 | PQF ---
[place] CAROL TRAYLOR [id number] CLINICAL DOCUMENTATION CLARIFICATION FORM: POST DISCHARGE Addendum to original discharge summary date: ____ Late entry note date: __ DATE: 10/06/2019 ATTN: CAROL TRAYLOR Please exercise your independent, professional judgment in responding to the clarification form. Clinical indicators are provided on the bottom of this form for your review Please check appropriate box(s): HEART FAILURE: ACUITY [ ] Acute [ >] Acute on Chronic [ ] Chronic [ ] Other diagnosis [ ] Unable to determine In addition, please specify: Present on Admission (POA): [ > ] Yes [ ] No [ ] Unable to determine For continuity of documentation, please document condition throughout progress notes and discharge summary. Thank You. CLINICAL INDICATORS - SIGNS / SYMPTOMS / LABS - Mild congestive heart failure with ejection fraction of 45 % to 50%- DS, 10/03 , CAROL TRAYLOR - Complaint of shortness of breath and lower extremity edema- DS, 10/03, CAROL TRAYLOR - Moderate to severe mitral regurgitation- DS, 10/03, DS, 10/03, CAROL TRAYLOR - CXR: Bilateral pleural effusions-H&P, 09/30, CAROL TRAYLOR - New onset of systolic/diastolic CHF- Consultation report, 10/03, CAROL TRAYLOR - BNP: 1169.4H- Laboratory report, 09/30 RISKS: - Atrial fibrillation with rapid ventricular response-DS, 10/03, CAROL TRAYLOR - COPD-DS, 10/03, CAROL TRAYLOR TREATMENTS: - Furosemide.IV- MAR, 09/30 to 10/02 (This form is maintained as a part of the permanent medical record) 2014 [employer]. All Rights Reserved [email or web address]
== END 2019-10-04 15:33 | disposition home or self-care (01) | DRG 308 ==
LOC: ERS 20:48 → 2NO 22:47
PROVIDERS: ADMIT Internal Medicine; ATTEND Internal Medicine
DX: I48.91 Unspecified atrial fibrillation (principal); I50.43 Acute on chronic combined systolic (congestive) and diastolic (congestive) heart failure; E27.1 Primary adrenocortical insufficiency; J90 Pleural effusion, not elsewhere classified; I11.0 Hypertensive heart disease with heart failure; Z51.5 Encounter for palliative care; G70.00 Myasthenia gravis without (acute) exacerbation; J44.9 Chronic obstructive pulmonary disease, unspecified; F32.9 Major depressive disorder, single episode, unspecified; R91.1 Solitary pulmonary nodule; F17.210 Nicotine dependence, cigarettes, uncomplicated; I34.0 Nonrheumatic mitral (valve) insufficiency; E87.6 Hypokalemia; E83.42 Hypomagnesemia; F41.9 Anxiety disorder, unspecified; R59.1 Generalized enlarged lymph nodes; Z88.0 Allergy status to penicillin; Z88.2 Allergy status to sulfonamides; Z88.8 Allergy status to other drugs, medicaments and biological substances; Z90.49 Acquired absence of other specified parts of digestive tract; Z90.710 Acquired absence of both cervix and uterus; Z91.81 History of falling
CPT/HCPCS: 36415; 71045; 71275; 72125; 80048; 80053; 81001; 83735; 83880; 84100; 84443; 84484; 85025; 85379; 85610; 85730; 93005; 93306; 94664; 96365; 96366; 96375; 96376; J1650; J1940; J3475; J3490; J7050; J7517; Q9967; S0028

== ENCOUNTER 2019-11-17 05:55 | Outpatient (CLI) | payer MEDICARE, MEDICAID, OTHER ==
[2019-11-18 12:44] LABS: SARS-CoV-2 MS2 Positive; SARS-CoV-2 N Gene Negative; SARS-CoV-2 S Gene Negative; SARS-CoV-2 orf1ab Negative
== END 2019-11-17 05:56 | disposition home or self-care (01) ==
LOC: LABBT 05:55
PROVIDERS: ATTEND Internal Medicine Cardiovascular Disease
DX: Z01.812 Encounter for preprocedural laboratory examination (principal); Z11.59 Encounter for screening for other viral diseases
CPT/HCPCS: 87635; U0003

== ENCOUNTER 2019-11-20 06:25 | Day surgery (SDC) | payer MEDICARE, MEDICAID ==
[2019-11-16 14:29] VITALS: BMI 18.5
--- NOTE | 2019-11-20 08:52 | OP ---
DATE OF PROCEDURE: 11/20/2019 PREPROCEDURE DIAGNOSIS: Atrial fibrillation. POSTPROCEDURE DIAGNOSIS: Sinus rhythm. PROCEDURE PERFORMED: Synchronized cardioversion. Ms. Carnes is a very pleasant 64-year-old woman, who I have seen and evaluated recently. She began having increased shortness of breath and palpitations. She states she has not missed a single dose of anticoagulation therapy over the last 3 to 4 weeks. She underwent successful synchronized cardioversion with 150 joules. IMPRESSION: Successful synchronized cardioversion. Job ID: [id number]
[2019-11-20] MEDS ORDERED: PROPOFOL 200 MG/20 ML VIAL ONE (12:29)
== END 2019-11-20 09:24 | disposition home or self-care (01) ==
LOC: CCL 06:25
PROVIDERS: ATTEND Internal Medicine Cardiovascular Disease
PROC: 5A2204Z Restoration of Cardiac Rhythm, Single (ICD-10-PCS; principal; 2019-11-20)
DX: I48.19 Other persistent atrial fibrillation (principal); E27.1 Primary adrenocortical insufficiency; G70.00 Myasthenia gravis without (acute) exacerbation; J44.9 Chronic obstructive pulmonary disease, unspecified; F32.9 Major depressive disorder, single episode, unspecified; Z87.891 Personal history of nicotine dependence; Z79.01 Long term (current) use of anticoagulants; Z79.899 Other long term (current) drug therapy; Z88.0 Allergy status to penicillin; Z88.1 Allergy status to other antibiotic agents; Z88.2 Allergy status to sulfonamides
CPT/HCPCS: 92960; 93005; 93010; J2704

== ENCOUNTER 2021-04-13 14:48 | Inpatient (IN) | payer MEDICARE, MEDICAID ==
[2021-04-13 15:39] LABS: #Basophils 0.1 thou/uL (0.0-0.2); #Eosinphils 0.2 thou/uL (0.0-0.7); #Lymphocytes 2.1 thou/uL (1.20-3.40); #Monocytes 0.6 thou/uL (0.11-0.59); #Neutrophils 5.3 thou/uL (1.40-6.50); %Basophils 1.5 % (0.0-1.0); %Eosinophils 2.3 % (0.0-10.0); %Monocytes 7.1 % (0.0-10.0); %Neutrophils 64.1 % (42.0-75.0); Hemoglobin 13.7 g/dL (12.0-16.0); Mean Corpuscular HGB CONC 32.3 g/dL (32.0-36.0); Mean Corpuscular Hemoglobin 31.4 pg (27.0-31.0); Mean Platelet Volume 7.6 fL (7.4-10.4); Platelet Count 262 thou/uL (130-400); RBC Distribution Width 13.2 % (11.5-14.5); Red Blood Cell (RBC) Count 4.38 mill/uL (4.20-5.40); White Blood Cell (WBC) Count 8.3 thou/uL (4.8-10.8)
[2021-04-13] MEDS ORDERED: Metoprolol Tartrate 5 MG/5 ML VIAL ONE (15:41)
[2021-04-13 16:00] LABS: ALT (SGPT) 15 U/L (8-55); AST (SGOT) 30 U/L (5-34); Albumin 3.5 g/dL (3.4-4.8); Alkaline Phosphatase 125 U/L (40-110); Anion Gap 13 mmol/L (10-20); BUN (Urea Nitrogen) 5 mg/dL (9.8-20.1); Bilirubin, Total 0.5 mg/dL (0.2-1.2); Calc. Creatinine Clearance 0 mL/min (70-130); Calcium 8.5 mg/dL (7.8-10.44); Carbon Dioxide 25 mmol/L (23-31); Chloride 100 mmol/L (98-107); Globulin 3.6 g/dL (2.4-3.5); Glucose 94 mg/dL (80-115); Potassium 5.3 mmol/L (3.5-5.1); Protein, Total 7.1 g/dL (5.8-8.1); Sodium 133 mmol/L (136-145)
[2021-04-13] MEDS ORDERED: Diltiazem 125 MG/25 ML ONE ×2 (16:32→16:34)
[2021-04-13] MEDS ORDERED: Enoxaparin Sodium 60 MG/0.6 ML SYRINGE ONE (17:54)
[2021-04-13] MEDS ORDERED: Nitroglycerin 2% Ointment 1 INCH/1 GM Packet ONE ×2 (17:54→17:56)
[2021-04-13] MEDS ORDERED: Aspirin Chewable 81 MG TAB ONE (17:54)
[2021-04-13 18:01] LABS: Magnesium 1.8 mg/dL (1.6-2.6)
[2021-04-13] MEDS ORDERED: Nitroglycerin 0.4 MG TAB (25 Tab Bottle) SL PRN (19:27)
[2021-04-13 20:16] LABS: Troponin I 0.015 ng/mL (< 0.028)
[2021-04-13] MEDS ORDERED: Acetaminophen 325 MG TAB ONE (20:57)
[2021-04-13] MEDS: Acetaminophen 325 MG TAB PO PRN (21:01)
[2021-04-13] MEDS ORDERED: Diltiazem 125 MG in Sodium Chloride 0.9% 100 ML IVPB SCH (22:30)
[2021-04-13 23:11] VITALS: BMI 19.5
[2021-04-13] MEDS ORDERED: Gabapentin 100 MG CAP PO SCH (23:45)
[2021-04-14] MEDS: Acetaminophen 325 MG TAB PO PRN ×2 (02:38→08:07)
[2021-04-14] MEDS ORDERED: Ketorolac Tromethamine 30 MG/ML VIAL IVP SCH (04:45)
[2021-04-14 05:46] LABS: #Basophils 0.1 thou/uL (0.0-0.2); #Eosinphils 0.3 thou/uL (0.0-0.7); #Lymphocytes 2.3 thou/uL (1.20-3.40); #Monocytes 0.6 thou/uL (0.11-0.59); #Neutrophils 3.3 thou/uL (1.40-6.50); %Basophils 1.6 % (0.0-1.0); %Lymphocytes 34.4 % (21.0-51.0); %Monocytes 9.4 % (0.0-10.0); %Neutrophils 50.6 % (42.0-75.0); Hemoglobin 11.7 g/dL (12.0-16.0); Mean Corpuscular Hemoglobin 31.1 pg (27.0-31.0); Mean Corpuscular Volume 97.2 fL (78.0-98.0); Mean Platelet Volume 7.9 fL (7.4-10.4); Platelet Count 245 thou/uL (130-400); RBC Distribution Width 13.1 % (11.5-14.5); Red Blood Cell (RBC) Count 3.75 mill/uL (4.20-5.40); White Blood Cell (WBC) Count 6.6 thou/uL (4.8-10.8)
[2021-04-14 06:07] LABS: Anion Gap 11 mmol/L (10-20); BUN (Urea Nitrogen) 9 mg/dL (9.8-20.1); Calc. Creatinine Clearance 73 mL/min (70-130); Calcium 8.2 mg/dL (7.8-10.44); Carbon Dioxide 25 mmol/L (23-31); Cardiac Risk 2.3 (Less than 4.5); Chloride 103 mmol/L (98-107); Cholesterol 99 mg/dl (< 200 Desired); Glucose 102 mg/dL (80-115); HDL Cholesterol 44 mg/dL (>60 Neg Risk); LDL Cholesterol, Calculated 44 mg/dL; Potassium 4.8 mmol/L (3.5-5.1); Sodium 134 mmol/L (136-145); Triglycerides 55 mg/dL (Less than 150)
[2021-04-14] MEDS: Gabapentin 100 MG CAP PO SCH ×3 (08:06→20:59)
[2021-04-14] MEDS: Aspirin Chewable 81 MG TAB PO SCH (08:06)
[2021-04-14] MEDS: Enoxaparin Sodium 60 MG/0.6 ML SYRINGE SC SCH ×2 (08:08→20:59)
[2021-04-14 12:11] LABS: SARS-CoV-2 PCR by NAA Not Detected (NotDetected)
[2021-04-14] MEDS: Acetaminophen/Codeine 30-300mg Tablet PO PRN ×2 (12:15→18:29)
[2021-04-14] MEDS ORDERED: Lidocaine 5% Patch TD SCH (12:30)
[2021-04-14] MEDS ORDERED: Spironolactone 25 MG TAB PO SCH (13:45)
[2021-04-14] MEDS: Mycophenolate 250 MG CAP PO SCH ×2 (14:18→21:00)
[2021-04-15] MEDS: Gabapentin 100 MG CAP PO SCH ×4 (00:35→20:11)
[2021-04-15] MEDS: Aspirin/APAP/Caffeine Tab (Excedrin Migraine) PO PRN ×2 (03:56→14:57)
[2021-04-15] MEDS: Mycophenolate 250 MG CAP PO SCH ×3 (09:12→20:12)
[2021-04-15] MEDS: Aspirin 81 mg Enteric Coated Tablet PO SCH (09:12)
[2021-04-15] MEDS: Enoxaparin Sodium 60 MG/0.6 ML SYRINGE SC SCH ×2 (09:12→20:13)
[2021-04-15] MEDS: Acetaminophen/Codeine 30-300mg Tablet PO PRN (09:14)
[2021-04-15] MEDS: Lidocaine 5% Patch TD SCH (09:14)
[2021-04-15] MEDS: Spironolactone 25 MG TAB PO SCH (09:14)
[2021-04-15] MEDS: Aspirin Chewable 81 MG TAB PO SCH (09:26)
[2021-04-15] MEDS ORDERED: Diltiazem 125 MG in Sodium Chloride 0.9% 100 ML IVPB SCH (10:49)
[2021-04-15] MEDS ORDERED: Fluticasone Propionate Nasal Spray 16 gm Bottle NASAL PRN (12:39)
[2021-04-16] MEDS: Acetaminophen/Codeine 30-300mg Tablet PO PRN ×2 (03:21→22:10)
[2021-04-16] MEDS: Lidocaine 5% Patch TD SCH (09:03)
[2021-04-16] MEDS: Enoxaparin Sodium 60 MG/0.6 ML SYRINGE SC SCH ×2 (09:04→22:02)
[2021-04-16] MEDS: Aspirin 81 mg Enteric Coated Tablet PO SCH (09:04)
[2021-04-16] MEDS: Spironolactone 25 MG TAB PO SCH (09:05)
[2021-04-16] MEDS: Gabapentin 100 MG CAP PO SCH ×3 (09:05→22:04)
[2021-04-16] MEDS: Mycophenolate 250 MG CAP PO SCH ×3 (09:06→22:03)
[2021-04-16] MEDS ORDERED: methylPREDNISolone Sod Succ 40 MG VIAL IVP SCH (12:30)
[2021-04-16] MEDS: Diltiazem HCl 125 MG, Admixture Fee 1 EACH in Sodium Chloride 0.9% 100 ML IVPB SCH (16:02)
[2021-04-16] MEDS: Mometasone 200 MCG/Formoterol 5 MCG 120 PUFF INHALER INH SCH (18:27)
[2021-04-17 05:10] LABS: #Lymphocytes 0.8 thou/uL (1.20-3.40); #Monocytes 0.3 thou/uL (0.11-0.59); #Neutrophils 5.1 thou/uL (1.40-6.50); %Basophils 0.5 % (0.0-1.0); %Eosinophils 0.1 % (0.0-10.0); %Lymphocytes 13.2 % (21.0-51.0); %Monocytes 4.1 % (0.0-10.0); %Neutrophils 82.1 % (42.0-75.0); Hemoglobin 12.5 g/dL (12.0-16.0); Mean Corpuscular HGB CONC 31.3 g/dL (32.0-36.0); Mean Corpuscular Hemoglobin 30.6 pg (27.0-31.0); Mean Corpuscular Volume 97.7 fL (78.0-98.0); Mean Platelet Volume 7.8 fL (7.4-10.4); Platelet Count 287 thou/uL (130-400); Red Blood Cell (RBC) Count 4.07 mill/uL (4.20-5.40); White Blood Cell (WBC) Count 6.2 thou/uL (4.8-10.8)
[2021-04-17 05:34] LABS: Anion Gap 11 mmol/L (10-20); BUN (Urea Nitrogen) 8 mg/dL (9.8-20.1); Calc. Creatinine Clearance 75 mL/min (70-130); Calcium 8.3 mg/dL (7.8-10.44); Carbon Dioxide 25 mmol/L (23-31); Chloride 101 mmol/L (98-107); Glucose 117 mg/dL (80-115); Potassium 4.3 mmol/L (3.5-5.1); Sodium 133 mmol/L (136-145)
[2021-04-17] MEDS: Mometasone 200 MCG/Formoterol 5 MCG 120 PUFF INHALER INH SCH ×2 (07:16→18:35)
[2021-04-17] MEDS ORDERED: Lidocaine 1% (PF) 30 ML VIAL ONE (07:59)
[2021-04-17] MEDS ORDERED: Sodium Chloride 0.9% 1,000 ML IV SCH ×2 (08:15→09:00)
[2021-04-17] MEDS ORDERED: Communication Order-Pharmacy FS SCH (08:15)
[2021-04-17] MEDS ORDERED: Midazolam HCl 2 mg/2 ml Vial ONE (08:36)
[2021-04-17] MEDS ORDERED: Fentanyl 100 MCG/2 ML VIAL ONE (08:36)
[2021-04-17] MEDS ORDERED: Acetaminophen/Codeine 30-300mg Tablet PO PRN (08:51)
[2021-04-17] MEDS ORDERED: Nitroglycerin 0.4 MG TAB (25 Tab Bottle) SL PRN (08:51)
[2021-04-17] MEDS ORDERED: Sodium Chloride 0.9% 200 ML IV PRN (08:51)
[2021-04-17] MEDS: Spironolactone 25 MG TAB PO SCH (10:24)
[2021-04-17] MEDS: Aspirin 81 mg Enteric Coated Tablet PO SCH (10:24)
[2021-04-17] MEDS: Gabapentin 100 MG CAP PO SCH ×3 (10:25→20:50)
[2021-04-17] MEDS: Mycophenolate 250 MG CAP PO SCH ×3 (10:25→20:51)
[2021-04-17] MEDS: Lidocaine 5% Patch TD SCH (10:26)
[2021-04-17] MEDS ORDERED: Iopamidol 370 76% 100 ML VIAL ONE (11:04)
[2021-04-17] MEDS: Diltiazem HCl 125 MG, Admixture Fee 1 EACH in Sodium Chloride 0.9% 100 ML IVPB SCH (14:21)
[2021-04-17] MEDS: Amiodarone 450 MG in Dextrose 5% in Water 250 ML IVPB SCH (20:50)
[2021-04-17] MEDS: Acetaminophen/Codeine 30-300mg Tablet PO PRN (20:51)
[2021-04-17] MEDS: Apixaban 5 MG TAB PO SCH (20:51)
[2021-04-17] MEDS: Amiodarone 200 MG TAB PO SCH (20:51)
[2021-04-18] MEDS: Mometasone 200 MCG/Formoterol 5 MCG 120 PUFF INHALER INH SCH ×2 (07:12→18:38)
[2021-04-18] MEDS: Amiodarone 450 MG in Dextrose 5% in Water 250 ML IVPB SCH ×2 (08:00→23:22)
[2021-04-18] MEDS: Amiodarone 200 MG TAB PO SCH ×2 (10:07→20:51)
[2021-04-18] MEDS: Mycophenolate 250 MG CAP PO SCH ×3 (10:07→20:50)
[2021-04-18] MEDS: Gabapentin 100 MG CAP PO SCH ×3 (10:08→20:50)
[2021-04-18] MEDS: Spironolactone 25 MG TAB PO SCH (10:08)
[2021-04-18] MEDS: Lidocaine 5% Patch TD SCH (10:09)
[2021-04-18] MEDS: Aspirin 81 mg Enteric Coated Tablet PO SCH (10:09)
[2021-04-18] MEDS: Apixaban 5 MG TAB PO SCH ×2 (10:09→20:50)
[2021-04-18] MEDS: Aspirin/APAP/Caffeine Tab (Excedrin Migraine) PO PRN (13:34)
[2021-04-18] MEDS: Acetaminophen/Codeine 30-300mg Tablet PO PRN (16:52)
[2021-04-18] MEDS: Diltiazem HCl 125 MG, Admixture Fee 1 EACH in Sodium Chloride 0.9% 100 ML IVPB SCH (19:09)
[2021-04-19] MEDS: Acetaminophen 325 MG TAB PO PRN (06:21)
[2021-04-19] MEDS: Mometasone 200 MCG/Formoterol 5 MCG 120 PUFF INHALER INH SCH (07:09)
[2021-04-19 07:34] LABS: #Basophils 0.1 thou/uL (0.0-0.2); #Eosinphils 0.2 thou/uL (0.0-0.7); #Lymphocytes 1.9 thou/uL (1.20-3.40); #Monocytes 0.7 thou/uL (0.11-0.59); #Neutrophils 5.2 thou/uL (1.40-6.50); %Eosinophils 2.7 % (0.0-10.0); %Lymphocytes 23.5 % (21.0-51.0); %Monocytes 8.8 % (0.0-10.0); %Neutrophils 64.1 % (42.0-75.0); Hemoglobin 12.6 g/dL (12.0-16.0); Mean Corpuscular HGB CONC 30.4 g/dL (32.0-36.0); Mean Platelet Volume 6.9 fL (7.4-10.4); Platelet Count 285 thou/uL (130-400); RBC Distribution Width 13.2 % (11.5-14.5); Red Blood Cell (RBC) Count 4.21 mill/uL (4.20-5.40); White Blood Cell (WBC) Count 8.1 thou/uL (4.8-10.8)
[2021-04-19 07:44] LABS: Calcium 8.2 mg/dL (7.8-10.44); Chloride 100 mmol/L (98-107); Potassium 4.5 mmol/L (3.5-5.1); Sodium 132 mmol/L (136-145)
[2021-04-19 07:45] LABS: Glucose 97 mg/dL (80-115)
[2021-04-19 07:46] LABS: Anion Gap 12 mmol/L (10-20); Carbon Dioxide 25 mmol/L (23-31)
[2021-04-19 07:48] LABS: Calc. Creatinine Clearance 63 mL/min (70-130)
[2021-04-19 07:49] LABS: BUN (Urea Nitrogen) 10 mg/dL (9.8-20.1)
[2021-04-19] MEDS: Amiodarone 200 MG TAB PO SCH (08:53)
[2021-04-19] MEDS: Aspirin 81 mg Enteric Coated Tablet PO SCH (08:53)
[2021-04-19] MEDS: Apixaban 5 MG TAB PO SCH (08:54)
[2021-04-19] MEDS: Mycophenolate 250 MG CAP PO SCH ×2 (08:54→15:21)
[2021-04-19] MEDS: Spironolactone 25 MG TAB PO SCH (08:55)
[2021-04-19] MEDS: Gabapentin 100 MG CAP PO SCH ×2 (08:55→15:21)
[2021-04-19] MEDS: Lidocaine 5% Patch TD SCH (08:55)
[2021-04-19 11:24] VITALS: TEMP 97.9
[2021-04-19 12:06] VITALS: BP 121/67
[2021-04-19] MEDS ORDERED: Ipratropium Bromide 2.5 ml Neb NEB SCH (13:00)
== END 2021-04-19 15:17 | disposition home or self-care (01) | DRG 286 ==
LOC: ERS 14:48 → ERHOLD 17:33 → 2SW 21:58 → 2NO 04-16 18:36
PROVIDERS: ADMIT Internal Medicine; ATTEND Internal Medicine
PROC: 4A023N7 Measurement of Cardiac Sampling and Pressure, Left Heart, Percutaneous Approach (ICD-10-PCS; principal; 2021-04-13)
PROC: B2111ZZ Fluoroscopy of Multiple Coronary Arteries using Low Osmolar Contrast (ICD-10-PCS; 2021-04-13)
DX: I48.0 Paroxysmal atrial fibrillation (principal); I50.23 Acute on chronic systolic (congestive) heart failure; E27.1 Primary adrenocortical insufficiency; Z20.822 Contact with and (suspected) exposure to COVID-19; I42.8 Other cardiomyopathies; R07.9 Chest pain, unspecified; G89.29 Other chronic pain; M25.519 Pain in unspecified shoulder; I08.1 Rheumatic disorders of both mitral and tricuspid valves; G70.00 Myasthenia gravis without (acute) exacerbation; F32.A Depression, unspecified; I48.19 Other persistent atrial fibrillation; E87.5 Hyperkalemia; J40 Bronchitis, not specified as acute or chronic; Z88.8 Allergy status to other drugs, medicaments and biological substances; Z88.2 Allergy status to sulfonamides; Z88.1 Allergy status to other antibiotic agents; Z79.01 Long term (current) use of anticoagulants; Z79.899 Other long term (current) drug therapy; Z90.710 Acquired absence of both cervix and uterus; Z90.49 Acquired absence of other specified parts of digestive tract; Z98.890 Other specified postprocedural states; Z87.891 Personal history of nicotine dependence; Z91.14 Patient's other noncompliance with medication regimen
CPT/HCPCS: 36415; 71045; 80048; 80053; 80061; 83735; 83880; 84443; 84484; 85025; 93005; 93010; 93306; 93458; 93798; 94640; 94760; 96372; 96374; 96375; 96376; 97139; 99152; J0282; J1650; J2001; J2250; J2920; J3010; J3490; J7070; J7517; J7620; Q9967; U0003; U0005